=== PATIENT | female | born 1985 | race Caucasian/White ===

== ENCOUNTER 2017-02-22 17:14 | Inpatient (IN) | payer OTHER ==
[~2017-02-22] VITALS: Ht 167.6 cm; Wt 107.5 kg
[~2017-02-22 17:14] MED LIST: HYDR-971 PO; NAPR500T3 PO; OMEP20TA63 PO; PNV1TABL25 PO; TRAM-29 PO
[2017-02-22 18:51] LABS: BASO # 0.1 x10^3/uL (0.0-0.2); BASO % 1 % (0-3); EOS % 1 % (0-3); HEMATOCRIT 30.4 % (36.0-47.0); HEMOGLOBIN 10.5 g/dL (12.0-15.5); LYMPH # 1.7 x10^3/uL (1.0-4.8); LYMPH % 15 % (24-48); MEAN CORPUSCULAR HEMOGLOBIN 32 pg (25-35); MEAN CORPUSCULAR HGB CONC 35 g/dL (31-37); MEAN CORPUSCULAR VOLUME 91 fL (79-100); MONO % 9 % (0-9); NEUT % 75 % (31-73); PLATELET COUNT 351 x10^3/uL (140-400); RED BLOOD COUNT 3.33 x10^6/uL (3.50-5.40); RED CELL DISTRIBUTION WIDTH 15.4 % (11.5-14.5); WHITE BLOOD COUNT 11.9 x10^3/uL (4.0-11.0)
[2017-02-22 18:58] LABS: BILIRUBIN,URINE NEGATIVE (NEG); GLUCOSE,URINE NEGATIVE (NEG); NITRITE,URINE POSITIVE (NEG); PROTEIN,URINE >=300 mg/dL (NEG-TRACE)
[2017-02-22] MEDS ORDERED: ONDANSETRON PF 4 MG/2 ML VIAL. IV ONE (19:00)
[2017-02-22] MEDS ORDERED: MORPHINE SULFATE 4 MG/ML DISP.SYRIN. IV ONE (19:00)
[2017-02-22 19:04] LABS: CALCIUM 9.9 mg/dL (8.5-10.1); CREATININE 1.2 mg/dL (0.6-1.0); GFR 52.4; POTASSIUM 3.1 mmol/L (3.5-5.1)
[2017-02-22 19:10] LABS: BACTERIA,URINE MANY /HPF (0-FEW); SQUAMOUS EPITHELIAL CELL,UR MOD /LPF; WBC,URINE TNTC /HPF (0-4)
[2017-02-22 19:18] LABS: ALBUMIN 3.5 g/dL (3.4-5.0); ALBUMIN/GLOBULIN RATIO 0.7 (1.0-1.7); TOTAL BILIRUBIN 0.6 mg/dL (0.2-1.0); TOTAL PROTEIN 8.8 g/dL (6.4-8.2)
[2017-02-22] MEDS: IV NORMAL SALINE 1000ML BAG 1,000 ML IV SCH ×4 (19:21→23:23)
[2017-02-22] MEDS ORDERED: CONTRAST GIVEN MC PRN (20:15)
[2017-02-22] MEDS ORDERED: IOHEXOL 300 MG/ML 75 ML VIAL IV ONE (20:30)
--- NOTE | 2017-02-22 20:32 | RAD ---
PROCEDURE CT abdomen and pelvis with contrast HISTORY BILAT FLANK PAIN, 60ML OMNI [address] scan of the abdomen and pelvis was done using 60 mL Omnipaque 300 contrast. Sagittal and coronal reconstructions were reviewed. One or more of the following individualized dose reduction techniques were utilized for this examination: 1. Automated exposure control; 2. Adjustment of the mA and/or kV according to patient size; 3. Use of iterative reconstruction technique. COMPARISON None FINDINGS The lung bases are clear. There is no pleural effusion. The liver is normal in size and appearance. There is no calcified gallstone. Spleen and adrenal glands are unremarkable. The pancreas was normal. There is indistinctness about both kidneys with slight perinephric haziness. Bilateral pyelonephritis can have this pattern. A focal area of decreased enhancement is not evident. There is no renal calculus or hydronephrosis. There are phleboliths in the pelvis. Bladder appeared normal. Uterus and ovaries are normal. Appendix was normal. There is no bowel obstruction. IMPRESSION 1. Mild decreased enhancement and haziness the perinephric space about both kidneys possible bilateral pyelonephritis. 2. No renal calculus or obstruction noted. 3. Normal appendix Electronically signed by: Shreyas Suazo MD (Feb 22, 2017 20:30:42)
[2017-02-22 20:39] LABS: OBC FLU VALID
[2017-02-22] MEDS ORDERED: ACETAMINOPHEN 500 MG TABLET PO ONE (20:45)
[2017-02-22] MEDS ORDERED: POTASSIUM CHLORIDE 20 MEQ TABLET.ER. PO ONE (21:45)
--- NOTE | 2017-02-22 22:17 | PHYS DOC ---
Past Medical History Past Medical History: No Pertinent History Past Surgical History: Other Additional Past Surgical Histo: vaginal delivery 09/2016 Alcohol Use: Occasionally Drug Use: Marijuana Adult General Chief Complaint Chief Complaint: FLANK PAIN HPI HPI Patient is a 31 year old female presents with fever, bilateral flank pain. Patient reports for the past several days she has been having fever, bilateral flank pain, body aches, nausea. She also reports a productive cough and a headache. She tried some aspirin and Aleve at home with insufficient relief. No prior similar episodes. Review of Systems Review of Systems Constitutional: Fever HENT: Denies nasal congestion or sore throat Respiratory: Cough. Denies shortness of breath Cardiovascular: Denies chest pain GI: Nausea. Denies abdominal pain, vomiting, bloody stools or diarrhea : Dysuria Musculoskeletal: B/l flank pain, general body aches Integument: Denies rash or skin lesions Neurologic: Headache. Denies focal weakness or sensory changes Current Medications Current Medications Current Medications Medications (Trade) Dose Ordered Sig/Triny Start Time Stop Time Status Last Admin Dose Admin Acetaminophen (Tylenol) 1,000 mg 1X ONCE 02/22/17 20:45 02/22/17 20:46 DC 02/22/17 20:43 1,000 MG Ceftriaxone Sodium (Rocephin 1gm Ivpb For Omni) 50 ml @ 100 mls/hr 1X ONCE 02/22/17 20:00 02/22/17 20:29 DC 02/22/17 19:48 100 MLS/HR Info (Do NOT chart on this entry -- for MONITORING) 1 each PRN DAILY PRN 02/22/17 20:15 02/24/17 20:14 Iohexol (Omnipaque 300 Mg/ml) 60 ml 1X ONCE 02/22/17 20:30 02/22/17 20:31 DC 02/22/17 20:18 60 ML Morphine Sulfate 4 mg 4 mg 1X ONCE 02/22/17 19:00 02/22/17 19:01 DC 02/22/17 19:42 4 MG Ondansetron HCl (Zofran) 4 mg 1X ONCE 02/22/17 19:00 02/22/17 19:01 DC 02/22/17 19:41 4 MG Potassium Chloride (Klor-Con) 40 meq 1X ONCE 02/22/17 21:45 02/22/17 21:46 DC 02/22/17 23:22 40 MEQ Sodium Chloride (Iv Sodium Chloride 0.9% 1000ml Bag) 1,000 ml @ 2,910 mls/hr Q21M 02/22/17 19:00 02/22/17 20:00 DC 02/22/17 19:43 2,910 MLS/HR Allergies Allergies Allergies Coded Allergies Type Severity Reaction Last Updated Verified No Known Drug Allergies 07/09/14 No Physical Exam Physical Exam Constitutional: Well developed, well nourished HENT: Normocephalic, atraumatic, bilateral external ears normal Eyes: EOMI, conjunctiva normal, no discharge Neck: Normal range of motion, no stridor Cardiovascular: Tachycardic, regular rhythm, no murmur Lungs & Thorax: Bilateral breath sounds clear to auscultation Abdomen: Bowel sounds normal, soft, non-distended, LLQ TTP without guarding or rebound Skin: Hot to touch, dry, no erythema, no rash Back: B/l CVA tenderness Extremities: No obvious deformity, no edema Neurologic: Alert and oriented X 3, no gross deficits noted Current Patient Data Vital Signs Vital Signs Date Time Temp Pulse Resp B/P Pulse Ox O2 Delivery O2 Flow Rate FiO2 02/22/17 21:30 114 02/22/17 20:30 23 110/56 95 Room Air 02/22/17 20:00 101.5 101.5 Lab Values Laboratory Tests Test 02/22/17 17:25 02/22/17 18:00 02/22/17 18:15 02/22/17 19:25 POC Urine HCG, Qualitative Hcg negative (Negative) Urine Collection Type Void Urine Color Yellow Urine Clarity Cloudy Urine pH 6.0 Urine Specific [place] 1.015 Urine Protein >=300mg/dL (NEG-TRACE) Urine Glucose (UA) Negativemg/dL (NEG) Urine Ketones (Stick) Negativemg/dL (NEG) Urine Blood Large (NEG) Urine Nitrite Positive (NEG) Urine Bilirubin Negative (NEG) Urine Urobilinogen Dipstick 1.0mg/dL (0.2 mg/dL) Urine Leukocyte Esterase Large (NEG) Urine RBC 1-2/HPF (0-2) Urine WBC Tntc/HPF (0-4) Urine Squamous Epithelial Cells Mod/LPF Urine Bacteria Many/HPF (0-FEW) Urine Mucus Marked/LPF White Blood Count 11.9x10^3/uL (4.0-11.0) H Red Blood Count 3.33x10^6/uL (3.50-5.40) L Hemoglobin 10.5g/dL (12.0-15.5) L Hematocrit 30.4% (36.0-47.0) L Mean Corpuscular Volume 91fL (79-100) Mean Corpuscular Hemoglobin 32pg (25-35) Mean Corpuscular Hemoglobin Concent 35g/dL (31-37) Red Cell Distribution Width 15.4% (11.5-14.5) H Platelet Count 351x10^3/uL (140-400) Neutrophils (%) (Auto) 75% (31-73) H Lymphocytes (%) (Auto) 15% (24-48) L Monocytes (%) (Auto) 9% (0-9) Eosinophils (%) (Auto) 1% (0-3) Basophils (%) (Auto) 1% (0-3) Neutrophils # (Auto) 8.9x10^3uL (1.8-7.7) H Lymphocytes # (Auto) 1.7x10^3/uL (1.0-4.8) Monocytes # (Auto) 1.1x10^3/uL (0.0-1.1) Eosinophils # (Auto) 0.1x10^3/uL (0.0-0.7) Basophils # (Auto) 0.1x10^3/uL (0.0-0.2) Sodium Level 138mmol/L (136-145) Potassium Level 3.1mmol/L (3.5-5.1) L Chloride Level 100mmol/L (98-107) Carbon Dioxide Level 25mmol/L (21-32) Anion Gap 13 (6-14) Blood Urea Nitrogen 16mg/dL (7-20) Creatinine 1.2mg/dL (0.6-1.0) H Estimated GFR (Cockcroft-Gault) 52.4 BUN/Creatinine Ratio 13 (6-20) Glucose Level 119mg/dL (70-99) H Calcium Level 9.9mg/dL (8.5-10.1) Total Bilirubin 0.6mg/dL (0.2-1.0) Aspartate Amino Transferase (AST) 22U/L (15-37) Alanine Aminotransferase (ALT) 27U/L (14-59) Alkaline Phosphatase 94U/L (46-116) Total Protein 8.8g/dL (6.4-8.2) H Albumin 3.5g/dL (3.4-5.0) Albumin/Globulin Ratio 0.7 (1.0-1.7) L Lipase 65U/L (73-393) L Lactic Acid Level 1.1mmol/L (0.4-2.0) Test 02/22/17 19:32 Influenza Type A Antigen Negative (NEGATIVE) Influenza Type B Antigen Negative (NEGATIVE) Laboratory Tests 02/22/17 18:15 Laboratory Tests 02/22/17 18:15 EKG EKG [] Radiology/Procedures Radiology/Procedures CT A/P: IMPRESSION 1. Mild decreased enhancement and haziness the perinephric space about both kidneys possible bilateral pyelonephritis. 2. No renal calculus or obstruction noted. 3. Normal appendix CXR (my read): No acute abnormality Course & Med Decision Making Course & Med Decision Making Pertinent Labs and Imaging studies reviewed. (See chart for details) Patient is 31-year-old female who presents with fever and bilateral flank pain. Suspect pyelonephritis. Will obtain CT abdomen/pelvis, chest x-ray, UA, labs to evaluate. With tachycardia and fever, patient meet SIRS criteria. Sepsis dose fluids ordered. Pain meds and nausea meds ordered for relief of symptoms. Labs notable for leukocytosis, apparent UTI. Imaging results of above. Dose of Rocephin ordered. Discussed results with patient. Discussed with Dr. Zafar, will admit under her care for further evaluation and treatment. Dragon Disclaimer Dragon Disclaimer This electronic medical record was generated, in whole or in part, using a voice recognition dictation system. Departure Departure Impression: Primary Impression: Pyelonephritis Disposition: ADMITTED INPATIENT Admitting Physician: Eliza Zafar Condition: STABLE Referrals: NO PCP (PCP) CHIDI LIMA MD Feb 22, 2017 22:17
[2017-02-22] MEDS ORDERED: ACETAMINOPHEN 325 MG TABLET. PO PRN (22:30)
--- NOTE | 2017-02-22 23:00 | ACF ---
Admission Forms Criteria PYELONEPHRITIS, ACUTE Clinical Indications for Admission to Inpatient Care (Place 'X' for any and all applicable criteria): Admission is indicated for ANY ONE of the following 1,2,3,4,5 [ ]I. Outpatient treatment has failed or is not feasible (eg, multidrug- resistant organism).5 [ ]II. beyond 24 weeks' gestation6 [ ]III. Hemodynamic instability [ ]IV. Immunocompromised state (eg, AIDS, diabetes, sickle cell disease) [ ]V. Known renal or urologic abnormalities (eg, indwelling catheter, structural abnormalities, renal calculi, urinary stent, previous urologic surgery) [ ]. Condition that requires drainage procedure, including ANY ONE of the following: [ ]a) Urinary obstruction [ ]b) Pyelitis [ ]c) Pyonephrosis [ ]d) Renal or perinephric abscess [ ]e) Emphysematous pyelonephritis 7 [X]VII. Inpatient admission required rather than observation care (Also use Pyelonephritis, Acute: Observation Care Criteria as appropriate) because of ANY ONE of the following: [X]a) High fever or infection requiring inpatient admission as indicated by ANY ONE of [id number] [X]A. Documented bacteremia [ ]B. Temp>104.9 [id number] (oral) [ ]C. Temp>103.10F (oral) or <96.80F (rectal) that does not respond to all emergency treatment [ ]b) Acute renal failure [ ]c) Other significant finding or clinical condition judged not to be within the scope of observation care [ ]d) IV fluid to replace significant ongoing (eg, for over 24hrs) losses (> 3 L/m2 per day) [ ]e) Other condition,treatment or monitoring requiring inpatient admission The original [facility] content created by [employer] has been revised. The portions of the content which have been revised are identified through the use of italic text or in bold, and [employer] [facility] has neither reviewed nor approved the modified material. All other unmodified content is copyright [employer]. Please see references footnoted in the original [facility] [facility] edition 2016 Admission Criteria Met?: Yes PAMELLA GARCIA Feb 22, 2017 23:00
[2017-02-22 23:25] VITALS: BP 96/68
[2017-02-22] MEDS: ONDANSETRON PF 4 MG/2 ML VIAL. IV PRN (23:29)
[2017-02-22] MEDS: MORPHINE SULFATE 4 MG/ML DISP.SYRIN. IV PRN (23:30)
[2017-02-23 02:55] VITALS: BP 107/68
[2017-02-23] MEDS: MORPHINE SULFATE 4 MG/ML DISP.SYRIN. IV PRN ×2 (03:02→05:16)
[2017-02-23] MEDS: IV NORMAL SALINE 1000ML BAG 1,000 ML IV SCH ×3 (05:15→14:30)
[2017-02-23 07:00] VITALS: BP 114/67
[2017-02-23 08:09] LABS: BASO # 0.1 x10^3/uL (0.0-0.2); BASO % 1 % (0-3); EOS % 1 % (0-3); HEMATOCRIT 27.9 % (36.0-47.0); HEMOGLOBIN 9.2 g/dL (12.0-15.5); LYMPH % 16 % (24-48); MEAN CORPUSCULAR HEMOGLOBIN 31 pg (25-35); MEAN CORPUSCULAR HGB CONC 33 g/dL (31-37); MEAN CORPUSCULAR VOLUME 94 fL (79-100); MONO % 9 % (0-9); NEUT % 73 % (31-73); PLATELET COUNT 321 x10^3/uL (140-400); RED BLOOD COUNT 2.97 x10^6/uL (3.50-5.40); RED CELL DISTRIBUTION WIDTH 15.4 % (11.5-14.5); WHITE BLOOD COUNT 12.6 x10^3/uL (4.0-11.0)
[2017-02-23 08:25] LABS: CREATININE 1.1 mg/dL (0.6-1.0); GFR 57.9; POTASSIUM 3.9 mmol/L (3.5-5.1)
--- NOTE | 2017-02-23 09:03 | RAD ---
Exam: PA and lateral chest radiograph History: Fever, cough for 2 days. Comparison: 02/05/2014. Findings: Cardiomediastinal silhouette is within normal limits for size. Bilateral lung garcía are free of focal infiltrate. No pleural effusion is seen. Mild focal accentuation of the kyphosis of the thoracolumbar junction from mild chronic wedging of several vertebral bodies is without change. Impression: No acute cardiopulmonary process.
--- NOTE | 2017-02-23 09:29 | PDOC1 ---
History and Physical Current Problem List Problem List Problems Medical Problems: (1) Pyelonephritis Status: Acute Current Medications Current Medications Current Medications Medications (Trade) Dose Ordered Sig/Triny Start Time Stop Time Status Last Admin Dose Admin Acetaminophen (Tylenol) 650 mg PRN Q4HRS PRN 02/22/17 22:30 02/23/17 22:29 Ceftriaxone Sodium (Rocephin 1gm Ivpb For Omni) 50 ml @ 100 mls/hr 1X ONCE 02/22/17 20:00 02/22/17 20:29 DC 02/22/17 19:48 100 MLS/HR Info (Do NOT chart on this entry -- for MONITORING) 1 each PRN DAILY PRN 02/22/17 20:15 02/24/17 20:14 Iohexol (Omnipaque 300 Mg/ml) 60 ml 1X ONCE 02/22/17 20:30 02/22/17 20:31 DC 02/22/17 20:18 60 ML Morphine Sulfate 4 mg 4 mg PRN Q2HR PRN 02/22/17 22:30 02/23/17 22:29 02/23/17 05:16 4 MG Ondansetron HCl (Zofran) 4 mg PRN Q8HRS PRN 02/22/17 22:30 02/23/17 22:29 02/22/17 23:29 4 MG Ondansetron HCl 4 mg 4 mg 1X ONCE 02/22/17 19:00 02/22/17 19:01 DC 02/22/17 19:41 4 MG Potassium Chloride (Klor-Con) 40 meq 1X ONCE 02/22/17 21:45 02/22/17 21:46 DC 02/22/17 23:22 40 MEQ Sodium Chloride (Iv Sodium Chloride 0.9% 1000ml Bag) 1,000 ml @ 125 mls/hr Q8H 02/22/17 22:30 02/23/17 22:29 02/23/17 05:15 125 MLS/HR Allergies Allergies Allergies Coded Allergies Type Severity Reaction Last Updated Verified No Known Drug Allergies 07/09/14 No ROS Review of System CONSTITUTIONAL: fever or chills EYES: No recent changes SKIN: No rash or itching CARDIOVASCULAR: No chest pain, syncope, palpitations, or edema RESPIRATORY: No SOB or cough GASTROINTESTINAL: abdominal pain NEUROLOGICAL: No headaches or weakness ENDOCRINE: No cold or heat intolerance GENITOURINARY: No urgency or frequency of urination MUSCULOSKELETAL: No back pain or joint pain LYMPHATICS: No enlarged lymph nodes PSYCHIATRIC: No anxiety or depression Physical Exam Physical Exam GEN.: No apparent distress. Alert and oriented times 3, obese HEENT: Head is normocephalic, atraumatic NECK: Supple. no JVD LUNGS: Clear to auscultation.NORMAL air flow anterior HEART: RRR, S1, S2 present. Peripheral pulses intact ABDOMEN: Soft, nontender. Positive bowel sounds. EXTREMITIES: Without any cyanosis. no edema NEUROLOGIC: Normal speech, normal tone PSYCHIATRIC: Normal affect, normal mood. SKIN: No visible rash Vitals Vitals Vital Signs Date Time Temp Pulse Resp B/P Pulse Ox O2 Delivery O2 Flow Rate FiO2 02/23/17 07:00 99.3 114 17 114/67 96 Room Air 99.3 Labs Labs Laboratory Tests Test 02/22/17 17:25 02/22/17 18:00 02/22/17 18:15 02/22/17 19:25 Bedside Urine HCG, Qualitative Hcg negative (Negative) Urine Collection Type Void Urine Color Yellow Urine Clarity Cloudy Urine pH 6.0 Urine Specific [place] 1.015 Urine Protein >=300mg/dL (NEG-TRACE) Urine Glucose (UA) Negativemg/dL (NEG) Urine Ketones (Stick) Negativemg/dL (NEG) Urine Blood Large (NEG) Urine Nitrite Positive (NEG) Urine Bilirubin Negative (NEG) Urine Urobilinogen Dipstick 1.0mg/dL (0.2 mg/dL) Urine Leukocyte Esterase Large (NEG) Urine RBC 1-2/HPF (0-2) Urine WBC Tntc/HPF (0-4) Urine Squamous Epithelial Cells Mod/LPF Urine Bacteria Many/HPF (0-FEW) Urine Mucus Marked/LPF White Blood Count 11.9x10^3/uL (4.0-11.0) Red Blood Count 3.33x10^6/uL (3.50-5.40) Hemoglobin 10.5g/dL (12.0-15.5) Hematocrit 30.4% (36.0-47.0) Mean Corpuscular Volume 91fL (79-100) Mean Corpuscular Hemoglobin 32pg (25-35) Mean Corpuscular Hemoglobin Concent 35g/dL (31-37) Red Cell Distribution Width 15.4% (11.5-14.5) Platelet Count 351x10^3/uL (140-400) Neutrophils (%) (Auto) 75% (31-73) Lymphocytes (%) (Auto) 15% (24-48) Monocytes (%) (Auto) 9% (0-9) Eosinophils (%) (Auto) 1% (0-3) Basophils (%) (Auto) 1% (0-3) Neutrophils # (Auto) 8.9x10^3uL (1.8-7.7) Lymphocytes # (Auto) 1.7x10^3/uL (1.0-4.8) Monocytes # (Auto) 1.1x10^3/uL (0.0-1.1) Eosinophils # (Auto) 0.1x10^3/uL (0.0-0.7) Basophils # (Auto) 0.1x10^3/uL (0.0-0.2) Sodium Level 138mmol/L (136-145) Potassium Level 3.1mmol/L (3.5-5.1) Chloride Level 100mmol/L (98-107) Carbon Dioxide Level 25mmol/L (21-32) Anion Gap 13 (6-14) Blood Urea Nitrogen 16mg/dL (7-20) Creatinine 1.2mg/dL (0.6-1.0) Estimated GFR (Cockcroft-Gault) 52.4 BUN/Creatinine Ratio 13 (6-20) Glucose Level 119mg/dL (70-99) Calcium Level 9.9mg/dL (8.5-10.1) Total Bilirubin 0.6mg/dL (0.2-1.0) Aspartate Amino Transf (AST/SGOT) 22U/L (15-37) Alanine Aminotransferase (ALT/SGPT) 27U/L (14-59) Alkaline Phosphatase 94U/L (46-116) Total Protein 8.8g/dL (6.4-8.2) Albumin 3.5g/dL (3.4-5.0) Albumin/Globulin Ratio 0.7 (1.0-1.7) Lipase 65U/L (73-393) Lactic Acid Level 1.1mmol/L (0.4-2.0) Test 02/22/17 19:32 02/23/17 07:20 Influenza Type A Antigen Negative (NEGATIVE) Influenza Type B Antigen Negative (NEGATIVE) White Blood Count 12.6x10^3/uL (4.0-11.0) Red Blood Count 2.97x10^6/uL (3.50-5.40) Hemoglobin 9.2g/dL (12.0-15.5) Hematocrit 27.9% (36.0-47.0) Mean Corpuscular Volume 94fL (79-100) Mean Corpuscular Hemoglobin 31pg (25-35) Mean Corpuscular Hemoglobin Concent 33g/dL (31-37) Red Cell Distribution Width 15.4% (11.5-14.5) Platelet Count 321x10^3/uL (140-400) Neutrophils (%) (Auto) 73% (31-73) Lymphocytes (%) (Auto) 16% (24-48) Monocytes (%) (Auto) 9% (0-9) Eosinophils (%) (Auto) 1% (0-3) Basophils (%) (Auto) 1% (0-3) Neutrophils # (Auto) 9.2x10^3uL (1.8-7.7) Lymphocytes # (Auto) 2.0x10^3/uL (1.0-4.8) Monocytes # (Auto) 1.2x10^3/uL (0.0-1.1) Eosinophils # (Auto) 0.1x10^3/uL (0.0-0.7) Basophils # (Auto) 0.1x10^3/uL (0.0-0.2) Sodium Level 138mmol/L (136-145) Potassium Level 3.9mmol/L (3.5-5.1) Chloride Level 103mmol/L (98-107) Carbon Dioxide Level 24mmol/L (21-32) Anion Gap 11 (6-14) Blood Urea Nitrogen 11mg/dL (7-20) Creatinine 1.1mg/dL (0.6-1.0) Estimated GFR (Cockcroft-Gault) 57.9 Glucose Level 101mg/dL (70-99) Calcium Level 8.0mg/dL (8.5-10.1) Laboratory Tests Test 02/22/17 17:25 02/22/17 18:00 02/22/17 18:15 02/22/17 19:25 Bedside Urine HCG, Qualitative Hcg negative (Negative) Urine Collection Type Void Urine Color Yellow Urine Clarity Cloudy Urine pH 6.0 Urine Specific [place] 1.015 Urine Protein >=300mg/dL (NEG-TRACE) Urine Glucose (UA) Negativemg/dL (NEG) Urine Ketones (Stick) Negativemg/dL (NEG) Urine Blood Large (NEG) Urine Nitrite Positive (NEG) Urine Bilirubin Negative (NEG) Urine Urobilinogen Dipstick 1.0mg/dL (0.2 mg/dL) Urine Leukocyte Esterase Large (NEG) Urine RBC 1-2/HPF (0-2) Urine WBC Tntc/HPF (0-4) Urine Squamous Epithelial Cells Mod/LPF Urine Bacteria Many/HPF (0-FEW) Urine Mucus Marked/LPF White Blood Count 11.9x10^3/uL (4.0-11.0) Red Blood Count 3.33x10^6/uL (3.50-5.40) Hemoglobin 10.5g/dL (12.0-15.5) Hematocrit 30.4% (36.0-47.0) Mean Corpuscular Volume 91fL (79-100) Mean Corpuscular Hemoglobin 32pg (25-35) Mean Corpuscular Hemoglobin Concent 35g/dL (31-37) Red Cell Distribution Width 15.4% (11.5-14.5) Platelet Count 351x10^3/uL (140-400) Neutrophils (%) (Auto) 75% (31-73) Lymphocytes (%) (Auto) 15% (24-48) Monocytes (%) (Auto) 9% (0-9) Eosinophils (%) (Auto) 1% (0-3) Basophils (%) (Auto) 1% (0-3) Neutrophils # (Auto) 8.9x10^3uL (1.8-7.7) Lymphocytes # (Auto) 1.7x10^3/uL (1.0-4.8) Monocytes # (Auto) 1.1x10^3/uL (0.0-1.1) Eosinophils # (Auto) 0.1x10^3/uL (0.0-0.7) Basophils # (Auto) 0.1x10^3/uL (0.0-0.2) Sodium Level 138mmol/L (136-145) Potassium Level 3.1mmol/L (3.5-5.1) Chloride Level 100mmol/L (98-107) Carbon Dioxide Level 25mmol/L (21-32) Anion Gap 13 (6-14) Blood Urea Nitrogen 16mg/dL (7-20) Creatinine 1.2mg/dL (0.6-1.0) Estimated GFR (Cockcroft-Gault) 52.4 BUN/Creatinine Ratio 13 (6-20) Glucose Level 119mg/dL (70-99) Calcium Level 9.9mg/dL (8.5-10.1) Total Bilirubin 0.6mg/dL (0.2-1.0) Aspartate Amino Transf (AST/SGOT) 22U/L (15-37) Alanine Aminotransferase (ALT/SGPT) 27U/L (14-59) Alkaline Phosphatase 94U/L (46-116) Total Protein 8.8g/dL (6.4-8.2) Albumin 3.5g/dL (3.4-5.0) Albumin/Globulin Ratio 0.7 (1.0-1.7) Lipase 65U/L (73-393) Lactic Acid Level 1.1mmol/L (0.4-2.0) Test 02/22/17 19:32 02/23/17 07:20 Influenza Type A Antigen Negative (NEGATIVE) Influenza Type B Antigen Negative (NEGATIVE) White Blood Count 12.6x10^3/uL (4.0-11.0) Red Blood Count 2.97x10^6/uL (3.50-5.40) Hemoglobin 9.2g/dL (12.0-15.5) Hematocrit 27.9% (36.0-47.0) Mean Corpuscular Volume 94fL (79-100) Mean Corpuscular Hemoglobin 31pg (25-35) Mean Corpuscular Hemoglobin Concent 33g/dL (31-37) Red Cell Distribution Width 15.4% (11.5-14.5) Platelet Count 321x10^3/uL (140-400) Neutrophils (%) (Auto) 73% (31-73) Lymphocytes (%) (Auto) 16% (24-48) Monocytes (%) (Auto) 9% (0-9) Eosinophils (%) (Auto) 1% (0-3) Basophils (%) (Auto) 1% (0-3) Neutrophils # (Auto) 9.2x10^3uL (1.8-7.7) Lymphocytes # (Auto) 2.0x10^3/uL (1.0-4.8) Monocytes # (Auto) 1.2x10^3/uL (0.0-1.1) Eosinophils # (Auto) 0.1x10^3/uL (0.0-0.7) Basophils # (Auto) 0.1x10^3/uL (0.0-0.2) Sodium Level 138mmol/L (136-145) Potassium Level 3.9mmol/L (3.5-5.1) Chloride Level 103mmol/L (98-107) Carbon Dioxide Level 24mmol/L (21-32) Anion Gap 11 (6-14) Blood Urea Nitrogen 11mg/dL (7-20) Creatinine 1.1mg/dL (0.6-1.0) Estimated GFR (Cockcroft-Gault) 57.9 Glucose Level 101mg/dL (70-99) Calcium Level 8.0mg/dL (8.5-10.1) VTE Prophylaxis Ordered VTE Prophylaxis Devices: Yes VTE Pharmacological Prophylaxi: Yes WANG OSWALD MD Feb 23, 2017 09:29
[2017-02-23] MEDS ORDERED: ONDANSETRON PF 4 MG/2 ML VIAL. IV PRN (09:30)
[2017-02-23] MEDS ORDERED: hydrALAZINE 20 MG/ML VIAL. IVP PRN (09:30)
[2017-02-23] MEDS: ACETAMINOPHEN 325 MG TABLET. PO PRN ×2 (10:00→20:39)
[2017-02-23] MEDS: ENOXAPARIN 40 MG/0.4 ML SYRINGE. SQ SCH (10:00)
[2017-02-23] MEDS ORDERED: PANTOPRAZOLE IV PUSH 40 MG VIAL. IVP SCH (10:00)
[2017-02-23] MEDS ORDERED: NICOTINE 21MG PATCH. TD PRN (10:15)
[2017-02-23 10:56] VITALS: BP 125/65
--- NOTE | 2017-02-23 11:44 | HP ---
ADMIT DATE: 02/23/2017 CHIEF COMPLAINT: Flank pain. HISTORY OF PRESENT ILLNESS: A 31-year-old female patient with no prior significant history, presented to the ER with complaints of fever, chills, abdominal pain, bilateral flank pain for nearly 5-7 days. She reported to have drenching sweats, fever at home and also noted to have body aches and weakness and some headaches. Yesterday she presented to the ER at the time she had some fever and abdominal pain was 8/10, vague, located to bilateral flank region. Denies any sick contacts or travel history. She did have some cough with headaches. Currently, headache is getting better. She has never been admitted to the hospital and did not have any antibiotic course prior to admission. She is a current smoker and also takes marijuana. 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 PAST MEDICAL HISTORY: None. PAST SURGICAL HISTORY: none PERSONAL HISTORY: Smoking less than 1 pack a day and no alcohol, occasionally takes THC. FAMILY HISTORY: Mother had pacemaker and diabetes. REVIEW OF SYSTEMS: Please see my electronic H and P. PHYSICAL EXAMINATION: Please see my electronic H and P. ALLERGIES: NKDA. LABORATORY FINDINGS: CBC; WBC 11.9, hemoglobin is 10.5, MCV is 91, platelets 351. Chemistry: Sodium is 138, potassium 3.1, chloride is 110, anion gap 13, BUN is 16, creatinine 1.2 and glucose 119. Lipase is 65. Serology; Influenza A and B negative. Urine pH is 6.0. Protein is more than 300. Ketones negative, nitrites positive, leukocyte esterase large, bacteria many. IMAGING STUDIES: 1. CT of the abdomen and pelvis showed suspected bilateral pyelonephritis. No renal calculus or obstruction noted. 2. Chest x-ray, no acute cardiopulmonary process seen. ASSESSMENT AND PLAN: 1. Acute pyelonephritis, present on admission. 2. Abdominal pain due to above. 3. Fever. 4. Nausea and abdominal pain due to above. 5. Hypokalemia. 6. Nicotine use. 4. THC use. 5. Obesity. PLAN: 1. She was started on IV Rocephin and will continue IV Rocephin daily. 2. Urine culture and sensitivities are pending. 3. Continue IV hydration at 125 mL per hour and if symptoms do not improve, I will repeat an ultrasound of the renal. 4. Encourage the patient to take oral fluids. If the patient is symptomatic, we will hold off. 5. Protonix has been started for symptoms of gastritis. 6. Nicotine patch p.r.n. 7. DVT prophylaxis with Lovenox. 8. Plan explained to the patient. Pain control with IV morphine and hydrocodone. WANG OSWALD MD DR: CURRY/elton JOB#: [id number] / [id number] VERONICA
[2017-02-23] MEDS: HYDROCODONE/APAP 5/325MG TABLET. PO PRN ×2 (11:50→19:42)
[2017-02-23] MEDS: ONDANSETRON PF 4 MG/2 ML VIAL. IV PRN (11:51)
[2017-02-23] MEDS: ALBUTEROL SULFATE 2.5 MG/3 ML NEBU. NEB PRN (12:28)
[2017-02-23 14:48] VITALS: BP 97/64
[2017-02-23 19:00] VITALS: BP 109/56
[2017-02-23 23:00] VITALS: BP 96/55
[2017-02-24] VITALS (7 sets, daily range): BP systolic 95–112; BP diastolic 54–70
[2017-02-24] MEDS: PANTOPRAZOLE 40 MG TABLET.DR. PO SCH (08:10)
[2017-02-24] MEDS: ACETAMINOPHEN 325 MG TABLET. PO PRN (08:28)
[2017-02-24 09:37] LABS: BASO # 0.1 x10^3/uL (0.0-0.2); BASO % 1 % (0-3); EOS % 2 % (0-3); HEMATOCRIT 23.8 % (36.0-47.0); HEMOGLOBIN 8.2 g/dL (12.0-15.5); LYMPH % 20 % (24-48); MEAN CORPUSCULAR HEMOGLOBIN 32 pg (25-35); MEAN CORPUSCULAR HGB CONC 35 g/dL (31-37); MEAN CORPUSCULAR VOLUME 91 fL (79-100); MONO % 9 % (0-9); NEUT % 69 % (31-73); PLATELET COUNT 343 x10^3/uL (140-400); RED BLOOD COUNT 2.62 x10^6/uL (3.50-5.40); RED CELL DISTRIBUTION WIDTH 15.4 % (11.5-14.5); WHITE BLOOD COUNT 10.1 x10^3/uL (4.0-11.0)
[2017-02-24 09:44] LABS: CALCIUM 8.1 mg/dL (8.5-10.1); GFR 64.7; POTASSIUM 3.5 mmol/L (3.5-5.1)
[2017-02-24] MEDS: IV NORMAL SALINE 1000ML BAG 1,000 ML IV SCH ×2 (10:30→21:26)
[2017-02-24] MEDS: ENOXAPARIN 40 MG/0.4 ML SYRINGE. SQ SCH (11:33)
[2017-02-24] MEDS: ALBUTEROL SULFATE 2.5 MG/3 ML NEBU. NEB PRN (11:38)
--- NOTE | 2017-02-24 12:45 | PDOC ---
PROGRESS NOTES Chief Complaint Chief Complaint cc: fevers A/P 1. Acute pyelonephritis, present on admission.: on IV Rocephin continue to have fevers, clinically getting better, continue abx. iv Hydration with normal saline. monitor UCX and blood cx. wbc better. monitor hemoglobin. 2. Abdominal pain due to above.: Pain control, 3. Fever. 4. Nausea and abdominal pain due to above. 5. Hypokalemia.Resolved. 6. Nicotine use. 4. THC use. 5. Obesity. Vitals Vitals Vital Signs Date Time Temp Pulse Resp B/P Pulse Ox O2 Delivery O2 Flow Rate FiO2 02/24/17 11:39 94 Room Air 02/24/17 11:34 97.7 16 112/54 97.7 02/24/17 08:14 94 02/24/17 07:00 3.0 Physical Exam General: Alert, Oriented X3 Heart: Normal S1, Normal S2 Lungs: Clear, Wheezing Abdomen: Normal bowel sounds, Soft Labs LABS Laboratory Tests Test 02/24/17 08:50 White Blood Count 10.1x10^3/uL (4.0-11.0) Red Blood Count 2.62x10^6/uL (3.50-5.40) Hemoglobin 8.2g/dL (12.0-15.5) Hematocrit 23.8% (36.0-47.0) Mean Corpuscular Volume 91fL (79-100) Mean Corpuscular Hemoglobin 32pg (25-35) Mean Corpuscular Hemoglobin Concent 35g/dL (31-37) Red Cell Distribution Width 15.4% (11.5-14.5) Platelet Count 343x10^3/uL (140-400) Neutrophils (%) (Auto) 69% (31-73) Lymphocytes (%) (Auto) 20% (24-48) Monocytes (%) (Auto) 9% (0-9) Eosinophils (%) (Auto) 2% (0-3) Basophils (%) (Auto) 1% (0-3) Neutrophils # (Auto) 6.9x10^3uL (1.8-7.7) Lymphocytes # (Auto) 2.0x10^3/uL (1.0-4.8) Monocytes # (Auto) 0.9x10^3/uL (0.0-1.1) Eosinophils # (Auto) 0.2x10^3/uL (0.0-0.7) Basophils # (Auto) 0.1x10^3/uL (0.0-0.2) Sodium Level 140mmol/L (136-145) Potassium Level 3.5mmol/L (3.5-5.1) Chloride Level 105mmol/L (98-107) Carbon Dioxide Level 27mmol/L (21-32) Anion Gap 8 (6-14) Blood Urea Nitrogen 8mg/dL (7-20) Creatinine 1.0mg/dL (0.6-1.0) Estimated GFR (Cockcroft-Gault) 64.7 Glucose Level 102mg/dL (70-99) Calcium Level 8.1mg/dL (8.5-10.1) Assessment and Plan Assessmemt and Plan Problems Medical Problems: (1) Pyelonephritis Status: Acute Problems: Comment Review of Relevant I have reviewed the following items rashaun (where applicable) has been applied. Labs Laboratory Tests Test 02/22/17 17:25 02/22/17 18:00 02/22/17 18:15 02/22/17 19:25 Bedside Urine HCG, Qualitative Hcg negative (Negative) Urine Collection Type Void Urine Color Yellow Urine Clarity Cloudy Urine pH 6.0 Urine Specific [place] 1.015 Urine Protein >=300mg/dL (NEG-TRACE) Urine Glucose (UA) Negativemg/dL (NEG) Urine Ketones (Stick) Negativemg/dL (NEG) Urine Blood Large (NEG) Urine Nitrite Positive (NEG) Urine Bilirubin Negative (NEG) Urine Urobilinogen Dipstick 1.0mg/dL (0.2 mg/dL) Urine Leukocyte Esterase Large (NEG) Urine RBC 1-2/HPF (0-2) Urine WBC Tntc/HPF (0-4) Urine Squamous Epithelial Cells Mod/LPF Urine Bacteria Many/HPF (0-FEW) Urine Mucus Marked/LPF White Blood Count 11.9x10^3/uL (4.0-11.0) Red Blood Count 3.33x10^6/uL (3.50-5.40) Hemoglobin 10.5g/dL (12.0-15.5) Hematocrit 30.4% (36.0-47.0) Mean Corpuscular Volume 91fL (79-100) Mean Corpuscular Hemoglobin 32pg (25-35) Mean Corpuscular Hemoglobin Concent 35g/dL (31-37) Red Cell Distribution Width 15.4% (11.5-14.5) Platelet Count 351x10^3/uL (140-400) Neutrophils (%) (Auto) 75% (31-73) Lymphocytes (%) (Auto) 15% (24-48) Monocytes (%) (Auto) 9% (0-9) Eosinophils (%) (Auto) 1% (0-3) Basophils (%) (Auto) 1% (0-3) Neutrophils # (Auto) 8.9x10^3uL (1.8-7.7) Lymphocytes # (Auto) 1.7x10^3/uL (1.0-4.8) Monocytes # (Auto) 1.1x10^3/uL (0.0-1.1) Eosinophils # (Auto) 0.1x10^3/uL (0.0-0.7) Basophils # (Auto) 0.1x10^3/uL (0.0-0.2) Sodium Level 138mmol/L (136-145) Potassium Level 3.1mmol/L (3.5-5.1) Chloride Level 100mmol/L (98-107) Carbon Dioxide Level 25mmol/L (21-32) Anion Gap 13 (6-14) Blood Urea Nitrogen 16mg/dL (7-20) Creatinine 1.2mg/dL (0.6-1.0) Estimated GFR (Cockcroft-Gault) 52.4 BUN/Creatinine Ratio 13 (6-20) Glucose Level 119mg/dL (70-99) Calcium Level 9.9mg/dL (8.5-10.1) Total Bilirubin 0.6mg/dL (0.2-1.0) Aspartate Amino Transf (AST/SGOT) 22U/L (15-37) Alanine Aminotransferase (ALT/SGPT) 27U/L (14-59) Alkaline Phosphatase 94U/L (46-116) Total Protein 8.8g/dL (6.4-8.2) Albumin 3.5g/dL (3.4-5.0) Albumin/Globulin Ratio 0.7 (1.0-1.7) Lipase 65U/L (73-393) Lactic Acid Level 1.1mmol/L (0.4-2.0) Test 02/22/17 19:32 02/23/17 07:20 02/24/17 08:50 Influenza Type A Antigen Negative (NEGATIVE) Influenza Type B Antigen Negative (NEGATIVE) White Blood Count 12.6x10^3/uL (4.0-11.0) 10.1x10^3/uL (4.0-11.0) Red Blood Count 2.97x10^6/uL (3.50-5.40) 2.62x10^6/uL (3.50-5.40) Hemoglobin 9.2g/dL (12.0-15.5) 8.2g/dL (12.0-15.5) Hematocrit 27.9% (36.0-47.0) 23.8% (36.0-47.0) Mean Corpuscular Volume 94fL (79-100) 91fL (79-100) Mean Corpuscular Hemoglobin 31pg (25-35) 32pg (25-35) Mean Corpuscular Hemoglobin Concent 33g/dL (31-37) 35g/dL (31-37) Red Cell Distribution Width 15.4% (11.5-14.5) 15.4% (11.5-14.5) Platelet Count 321x10^3/uL (140-400) 343x10^3/uL (140-400) Neutrophils (%) (Auto) 73% (31-73) 69% (31-73) Lymphocytes (%) (Auto) 16% (24-48) 20% (24-48) Monocytes (%) (Auto) 9% (0-9) 9% (0-9) Eosinophils (%) (Auto) 1% (0-3) 2% (0-3) Basophils (%) (Auto) 1% (0-3) 1% (0-3) Neutrophils # (Auto) 9.2x10^3uL (1.8-7.7) 6.9x10^3uL (1.8-7.7) Lymphocytes # (Auto) 2.0x10^3/uL (1.0-4.8) 2.0x10^3/uL (1.0-4.8) Monocytes # (Auto) 1.2x10^3/uL (0.0-1.1) 0.9x10^3/uL (0.0-1.1) Eosinophils # (Auto) 0.1x10^3/uL (0.0-0.7) 0.2x10^3/uL (0.0-0.7) Basophils # (Auto) 0.1x10^3/uL (0.0-0.2) 0.1x10^3/uL (0.0-0.2) Sodium Level 138mmol/L (136-145) 140mmol/L (136-145) Potassium Level 3.9mmol/L (3.5-5.1) 3.5mmol/L (3.5-5.1) Chloride Level 103mmol/L (98-107) 105mmol/L (98-107) Carbon Dioxide Level 24mmol/L (21-32) 27mmol/L (21-32) Anion Gap 11 (6-14) 8 (6-14) Blood Urea Nitrogen 11mg/dL (7-20) 8mg/dL (7-20) Creatinine 1.1mg/dL (0.6-1.0) 1.0mg/dL (0.6-1.0) Estimated GFR (Cockcroft-Gault) 57.9 64.7 Glucose Level 101mg/dL (70-99) 102mg/dL (70-99) Calcium Level 8.0mg/dL (8.5-10.1) 8.1mg/dL (8.5-10.1) Laboratory Tests Test 02/24/17 08:50 White Blood Count 10.1x10^3/uL (4.0-11.0) Red Blood Count 2.62x10^6/uL (3.50-5.40) Hemoglobin 8.2g/dL (12.0-15.5) Hematocrit 23.8% (36.0-47.0) Mean Corpuscular Volume 91fL (79-100) Mean Corpuscular Hemoglobin 32pg (25-35) Mean Corpuscular Hemoglobin Concent 35g/dL (31-37) Red Cell Distribution Width 15.4% (11.5-14.5) Platelet Count 343x10^3/uL (140-400) Neutrophils (%) (Auto) 69% (31-73) Lymphocytes (%) (Auto) 20% (24-48) Monocytes (%) (Auto) 9% (0-9) Eosinophils (%) (Auto) 2% (0-3) Basophils (%) (Auto) 1% (0-3) Neutrophils # (Auto) 6.9x10^3uL (1.8-7.7) Lymphocytes # (Auto) 2.0x10^3/uL (1.0-4.8) Monocytes # (Auto) 0.9x10^3/uL (0.0-1.1) Eosinophils # (Auto) 0.2x10^3/uL (0.0-0.7) Basophils # (Auto) 0.1x10^3/uL (0.0-0.2) Sodium Level 140mmol/L (136-145) Potassium Level 3.5mmol/L (3.5-5.1) Chloride Level 105mmol/L (98-107) Carbon Dioxide Level 27mmol/L (21-32) Anion Gap 8 (6-14) Blood Urea Nitrogen 8mg/dL (7-20) Creatinine 1.0mg/dL (0.6-1.0) Estimated GFR (Cockcroft-Gault) 64.7 Glucose Level 102mg/dL (70-99) Calcium Level 8.1mg/dL (8.5-10.1) Microbiology 02/22/17 Blood Culture - Preliminary, Resulted NO GROWTH AFTER 1 DAY 02/22/17 Urine Culture - Preliminary, Resulted 02/22/17 Urine Culture Result 1 (LISA) - Preliminary, Resulted Medications Current Medications Sodium Chloride (Iv Sodium Chloride 0.9% 1000ml Bag) 1,000 ml @ 2,910 mls/hr Q21M IV Last administered on 02/22/17 19:43; Start 02/22/17 at 19:00; Stop at 20:00; Status DC Ondansetron HCl (Zofran) 4 mg 1X ONCE IV Last administered on 02/22/17 19:41 ; Start 02/22/17 at 19:00; Stop 02/22/17 at 19:01; Status DC Morphine Sulfate 4 mg 4 mg 1X ONCE IV Last administered on 02/22/17 19:42; Start 02/22/17 at 19:00; Stop 02/22/17 at 19:01; Status DC Ceftriaxone Sodium (Rocephin 1gm Ivpb For Omni) 50 ml @ 100 mls/hr 1X ONCE IV Last administered on 02/22/17 19:48; Start 02/22/17 at 20:00; Stop 02/22/17 at 20:29; Status DC Iohexol (Omnipaque 300 Mg/ml) 60 ml 1X ONCE IV Last administered on 02/22/17 20:18; Start 02/22/17 at 20:30; Stop 02/22/17 at 20:31; Status DC Info (Do NOT chart on this entry -- for MONITORING) 1 each PRN DAILY PRN MC SEE COMMENTS; Start 02/22/17 at 20:15; Stop 02/24/17 at 20:14 Acetaminophen (Tylenol) 1,000 mg 1X ONCE PO Last administered on 02/22/17 20: 43; Start 02/22/17 at 20:45; Stop 02/22/17 at 20:46; Status DC Potassium Chloride (Klor-Con) 40 meq 1X ONCE PO Last administered on 23:22; Start 02/22/17 at 21:45; Stop 02/22/17 at 21:46; Status DC Ondansetron HCl (Zofran) 4 mg PRN Q8HRS PRN IV NAUSEA/VOMITING Last administered on 02/23/17 11:51; Start 02/22/17 at 22:30; Stop 02/23/17 at 18:42 ; Status DC Morphine Sulfate 4 mg 4 mg PRN Q2HR PRN IV PAIN Last administered on 02/23/17 05:16; Start 02/22/17 at 22:30; Stop 02/23/17 at 22:29; Status DC Sodium Chloride (Iv Sodium Chloride 0.9% 1000ml Bag) 1,000 ml @ 125 mls/hr Q8H IV Last administered on 02/23/17 05:15; Start 02/22/17 at 22:30; Stop at 15:36; Status DC Acetaminophen 650 mg 650 mg PRN Q4HRS PRN PO FEVER; Start 02/22/17 at 22:30; Stop 02/23/17 at 09:47; Status DC Ceftriaxone Sodium 1 gm/ Sodium Chloride 50 ml @ 100 mls/hr Q24H IV Last administered on 02/24/17 10:30; Start 02/23/17 at 10:00 Sodium Chloride (Iv Sodium Chloride 0.9% 1000ml Bag) 1,000 ml @ 100 mls/hr Q10H IV Last administered on 02/24/17 10:30; Start 02/23/17 at 09:30 Acetaminophen (Tylenol) 325 mg PRN Q6HRS PRN PO MILD PAIN / TEMP Last administered on 02/24/17 08:28; Start 02/23/17 at 09:30 Acetaminophen/ Hydrocodone Bitart (Lortab 5/325) 1 tab PRN Q6HRS PRN PO MODERATE TO SEVERE PAIN Last administered on 02/23/17 19:42; Start 02/23/17 at 09:30 Hydralazine HCl (Apresoline) 10 mg PRN Q4HRS PRN IVP ELEVATED BP, SEE COMMENTS ; Start 02/23/17 at 09:30 Ondansetron HCl (Zofran) 4 mg PRN Q8HRS PRN IV NAUSEA/VOMITING; Start 02/23/17 at 09:30 Albuterol Sulfate (Ventolin Neb Soln) 2.5 mg PRN Q4HRS PRN NEB SHORTNESS OF BREATH Last administered on 02/24/17 11:38; Start 02/23/17 at 09:30 Pantoprazole Sodium (Protonix Vial) 40 mg DAILYAC IVP Last administered on 02/23 10:00; Start 02/23/17 at 10:00; Stop 02/23/17 at 18:44; Status DC Enoxaparin Sodium (Lovenox 40mg Syringe) 40 mg Q24H SQ Last administered on 11:33; Start 02/23/17 at 10:00 Nicotine (Nicoderm Cq 21mg) 1 patch PRN DAILY PRN TD SMOKING CESSATION Last administered on 02/23/17 10:40; Start 02/23/17 at 10:15 Pantoprazole Sodium (Protonix) 40 mg DAILYAC PO Last administered on 02/24/17 08:10; Start 02/24/17 at 07:30 Active Scripts Active Naproxen 500 Mg Tablet 1 Tab PO BID [place] 5-325 Tablet (Acetaminophen/Hydrocodone Bitart) 1 Each Tablet 1 Tab PO PRN Q6HRS PRN Vitals/I & O Vital Sign - Last 24 Hours 02/23/17 02/23/17 02/23/17 02/23/17 14:48 19:00 19:42 20:00 Temp 98.6 100.4 98.6 100.4 Pulse 98 115 Resp 18 B/P 97/64 109/56 Pulse Ox 96 99 96 O2 Delivery Room Air Room Air Room Air 02/23/17 02/23/17 02/24/17 02/24/17 20:42 23:00 03:00 07:00 Temp 98.4 100.0 99.1 98.4 100.0 99.1 Pulse 95 93 94 Resp 18 16 B/P 96/55 95/60 102/55 Pulse Ox 96 95 96 93 O2 Delivery Room Air Nasal Cannula O2 Flow Rate 3.0 02/24/17 02/24/17 02/24/17 02/24/17 07:50 08:14 11:34 11:39 Temp 99.1 97.7 99.1 97.7 Pulse 94 Resp 16 B/P 102/55 112/54 Pulse Ox 94 O2 Delivery Room Air Room Air Room Air Room Air Intake and Output 02/23/17 02/23/17 02/24/17 15:00 23:00 07:00 Intake Total 1000 ml 360 ml 120 ml Balance 1000 ml 360 ml 120 ml WANG OSWALD MD Feb 24, 2017 12:45
[2017-02-24] MEDS: HYDROCODONE/APAP 5/325MG TABLET. PO PRN (20:36)
[2017-02-25] MEDS: IV NORMAL SALINE 1000ML BAG 1,000 ML IV SCH ×2 (01:30→11:30)
[2017-02-25 03:00] VITALS: BP 105/69
[2017-02-25 04:36] LABS: BASO # 0.1 x10^3/uL (0.0-0.2); BASO % 1 % (0-3); EOS % 4 % (0-3); HEMATOCRIT 23.5 % (36.0-47.0); HEMOGLOBIN 7.9 g/dL (12.0-15.5); LYMPH # 2.5 x10^3/uL (1.0-4.8); LYMPH % 31 % (24-48); MEAN CORPUSCULAR HEMOGLOBIN 31 pg (25-35); MEAN CORPUSCULAR HGB CONC 34 g/dL (31-37); MEAN CORPUSCULAR VOLUME 93 fL (79-100); MONO % 7 % (0-9); NEUT % 58 % (31-73); PLATELET COUNT 363 x10^3/uL (140-400); RED BLOOD COUNT 2.52 x10^6/uL (3.50-5.40); RED CELL DISTRIBUTION WIDTH 15.3 % (11.5-14.5); WHITE BLOOD COUNT 8.2 x10^3/uL (4.0-11.0)
[2017-02-25 05:28] LABS: CALCIUM 8.4 mg/dL (8.5-10.1); CREATININE 0.9 mg/dL (0.6-1.0); POTASSIUM 3.8 mmol/L (3.5-5.1)
[2017-02-25 07:00] VITALS: BP 120/60
[2017-02-25] MEDS: PANTOPRAZOLE 40 MG TABLET.DR. PO SCH (08:40)
[2017-02-25] MEDS: ENOXAPARIN 40 MG/0.4 ML SYRINGE. SQ SCH (08:40)
[2017-02-25] MEDS: HYDROCODONE/APAP 5/325MG TABLET. PO PRN (08:53)
[2017-02-25 11:00] VITALS: BP 111/79
[2017-02-25] MEDS ORDERED: CIPROFLOXACIN HCL 250 MG TABLET. PO SCH ×2 (11:30→21:00)
--- NOTE | 2017-02-25 11:30 | PDOC ---
PROGRESS NOTES Chief Complaint Chief Complaint cc: fevers A/P 1. Acute pyelonephritis, present on admission. E coli: on IV Rocephin UCX, Senstivie to cipro, anticipated DC today as pt is asymptomatic, clinically better. 2. Abdominal pain due to above.: Pain control, 3. Fever. 4. Nausea and abdominal pain due to above. 5. Hypokalemia.Resolved. 6. Nicotine use. 4. THC use. 5. Obesity. Vitals Vitals Vital Signs Date Time Temp Pulse Resp B/P Pulse Ox O2 Delivery O2 Flow Rate FiO2 02/25/17 09:55 97 Room Air 3.0 02/25/17 07:00 97.0 88 22 120/60 97.0 Physical Exam General: Alert, Oriented X3 Heart: Normal S1, Normal S2 Lungs: Clear, Wheezing Abdomen: Normal bowel sounds, Soft Labs LABS Laboratory Tests Test 02/25/17 03:30 White Blood Count 8.2x10^3/uL (4.0-11.0) Red Blood Count 2.52x10^6/uL (3.50-5.40) Hemoglobin 7.9g/dL (12.0-15.5) Hematocrit 23.5% (36.0-47.0) Mean Corpuscular Volume 93fL (79-100) Mean Corpuscular Hemoglobin 31pg (25-35) Mean Corpuscular Hemoglobin Concent 34g/dL (31-37) Red Cell Distribution Width 15.3% (11.5-14.5) Platelet Count 363x10^3/uL (140-400) Neutrophils (%) (Auto) 58% (31-73) Lymphocytes (%) (Auto) 31% (24-48) Monocytes (%) (Auto) 7% (0-9) Eosinophils (%) (Auto) 4% (0-3) Basophils (%) (Auto) 1% (0-3) Neutrophils # (Auto) 4.8x10^3uL (1.8-7.7) Lymphocytes # (Auto) 2.5x10^3/uL (1.0-4.8) Monocytes # (Auto) 0.6x10^3/uL (0.0-1.1) Eosinophils # (Auto) 0.3x10^3/uL (0.0-0.7) Basophils # (Auto) 0.1x10^3/uL (0.0-0.2) Sodium Level 142mmol/L (136-145) Potassium Level 3.8mmol/L (3.5-5.1) Chloride Level 107mmol/L (98-107) Carbon Dioxide Level 26mmol/L (21-32) Anion Gap 9 (6-14) Blood Urea Nitrogen 11mg/dL (7-20) Creatinine 0.9mg/dL (0.6-1.0) Estimated GFR (Cockcroft-Gault) 73.0 Glucose Level 93mg/dL (70-99) Calcium Level 8.4mg/dL (8.5-10.1) Assessment and Plan Assessmemt and Plan Problems Medical Problems: (1) Pyelonephritis Status: Acute Problems: Comment Review of Relevant I have reviewed the following items rashaun (where applicable) has been applied. Labs Laboratory Tests Test 02/24/17 08:50 02/25/17 03:30 White Blood Count 10.1x10^3/uL (4.0-11.0) 8.2x10^3/uL (4.0-11.0) Red Blood Count 2.62x10^6/uL (3.50-5.40) 2.52x10^6/uL (3.50-5.40) Hemoglobin 8.2g/dL (12.0-15.5) 7.9g/dL (12.0-15.5) Hematocrit 23.8% (36.0-47.0) 23.5% (36.0-47.0) Mean Corpuscular Volume 91fL (79-100) 93fL (79-100) Mean Corpuscular Hemoglobin 32pg (25-35) 31pg (25-35) Mean Corpuscular Hemoglobin Concent 35g/dL (31-37) 34g/dL (31-37) Red Cell Distribution Width 15.4% (11.5-14.5) 15.3% (11.5-14.5) Platelet Count 343x10^3/uL (140-400) 363x10^3/uL (140-400) Neutrophils (%) (Auto) 69% (31-73) 58% (31-73) Lymphocytes (%) (Auto) 20% (24-48) 31% (24-48) Monocytes (%) (Auto) 9% (0-9) 7% (0-9) Eosinophils (%) (Auto) 2% (0-3) 4% (0-3) Basophils (%) (Auto) 1% (0-3) 1% (0-3) Neutrophils # (Auto) 6.9x10^3uL (1.8-7.7) 4.8x10^3uL (1.8-7.7) Lymphocytes # (Auto) 2.0x10^3/uL (1.0-4.8) 2.5x10^3/uL (1.0-4.8) Monocytes # (Auto) 0.9x10^3/uL (0.0-1.1) 0.6x10^3/uL (0.0-1.1) Eosinophils # (Auto) 0.2x10^3/uL (0.0-0.7) 0.3x10^3/uL (0.0-0.7) Basophils # (Auto) 0.1x10^3/uL (0.0-0.2) 0.1x10^3/uL (0.0-0.2) Sodium Level 140mmol/L (136-145) 142mmol/L (136-145) Potassium Level 3.5mmol/L (3.5-5.1) 3.8mmol/L (3.5-5.1) Chloride Level 105mmol/L (98-107) 107mmol/L (98-107) Carbon Dioxide Level 27mmol/L (21-32) 26mmol/L (21-32) Anion Gap 8 (6-14) 9 (6-14) Blood Urea Nitrogen 8mg/dL (7-20) 11mg/dL (7-20) Creatinine 1.0mg/dL (0.6-1.0) 0.9mg/dL (0.6-1.0) Estimated GFR (Cockcroft-Gault) 64.7 73.0 Glucose Level 102mg/dL (70-99) 93mg/dL (70-99) Calcium Level 8.1mg/dL (8.5-10.1) 8.4mg/dL (8.5-10.1) Laboratory Tests Test 02/25/17 03:30 White Blood Count 8.2x10^3/uL (4.0-11.0) Red Blood Count 2.52x10^6/uL (3.50-5.40) Hemoglobin 7.9g/dL (12.0-15.5) Hematocrit 23.5% (36.0-47.0) Mean Corpuscular Volume 93fL (79-100) Mean Corpuscular Hemoglobin 31pg (25-35) Mean Corpuscular Hemoglobin Concent 34g/dL (31-37) Red Cell Distribution Width 15.3% (11.5-14.5) Platelet Count 363x10^3/uL (140-400) Neutrophils (%) (Auto) 58% (31-73) Lymphocytes (%) (Auto) 31% (24-48) Monocytes (%) (Auto) 7% (0-9) Eosinophils (%) (Auto) 4% (0-3) Basophils (%) (Auto) 1% (0-3) Neutrophils # (Auto) 4.8x10^3uL (1.8-7.7) Lymphocytes # (Auto) 2.5x10^3/uL (1.0-4.8) Monocytes # (Auto) 0.6x10^3/uL (0.0-1.1) Eosinophils # (Auto) 0.3x10^3/uL (0.0-0.7) Basophils # (Auto) 0.1x10^3/uL (0.0-0.2) Sodium Level 142mmol/L (136-145) Potassium Level 3.8mmol/L (3.5-5.1) Chloride Level 107mmol/L (98-107) Carbon Dioxide Level 26mmol/L (21-32) Anion Gap 9 (6-14) Blood Urea Nitrogen 11mg/dL (7-20) Creatinine 0.9mg/dL (0.6-1.0) Estimated GFR (Cockcroft-Gault) 73.0 Glucose Level 93mg/dL (70-99) Calcium Level 8.4mg/dL (8.5-10.1) Microbiology 02/22/17 Blood Culture - Preliminary, Resulted NO GROWTH AFTER 2 DAYS 02/22/17 Urine Culture - Final, Complete 02/22/17 Urine Culture Result 1 (LISA) - Final, Complete 02/22/17 Antimicrobic Susceptibility - Final, Complete Medications Current Medications Sodium Chloride (Iv Sodium Chloride 0.9% 1000ml Bag) 1,000 ml @ 2,910 mls/hr Q21M IV Last administered on 02/22/17 19:43; Start 02/22/17 at 19:00; Stop at 20:00; Status DC Ondansetron HCl (Zofran) 4 mg 1X ONCE IV Last administered on 02/22/17 19:41 ; Start 02/22/17 at 19:00; Stop 02/22/17 at 19:01; Status DC Morphine Sulfate 4 mg 4 mg 1X ONCE IV Last administered on 02/22/17 19:42; Start 02/22/17 at 19:00; Stop 02/22/17 at 19:01; Status DC Ceftriaxone Sodium (Rocephin 1gm Ivpb For Omni) 50 ml @ 100 mls/hr 1X ONCE IV Last administered on 02/22/17 19:48; Start 02/22/17 at 20:00; Stop 02/22/17 at 20:29; Status DC Iohexol (Omnipaque 300 Mg/ml) 60 ml 1X ONCE IV Last administered on 02/22/17 20:18; Start 02/22/17 at 20:30; Stop 02/22/17 at 20:31; Status DC Info (Do NOT chart on this entry -- for MONITORING) 1 each PRN DAILY PRN MC SEE COMMENTS; Start 02/22/17 at 20:15; Stop 02/24/17 at 20:14; Status DC Acetaminophen (Tylenol) 1,000 mg 1X ONCE PO Last administered on 02/22/17 20: 43; Start 02/22/17 at 20:45; Stop 02/22/17 at 20:46; Status DC Potassium Chloride (Klor-Con) 40 meq 1X ONCE PO Last administered on 23:22; Start 02/22/17 at 21:45; Stop 02/22/17 at 21:46; Status DC Ondansetron HCl (Zofran) 4 mg PRN Q8HRS PRN IV NAUSEA/VOMITING Last administered on 02/23/17 11:51; Start 02/22/17 at 22:30; Stop 02/23/17 at 18:42 ; Status DC Morphine Sulfate 4 mg 4 mg PRN Q2HR PRN IV PAIN Last administered on 02/23/17 05:16; Start 02/22/17 at 22:30; Stop 02/23/17 at 22:29; Status DC Sodium Chloride (Iv Sodium Chloride 0.9% 1000ml Bag) 1,000 ml @ 125 mls/hr Q8H IV Last administered on 02/23/17 05:15; Start 02/22/17 at 22:30; Stop at 15:36; Status DC Acetaminophen 650 mg 650 mg PRN Q4HRS PRN PO FEVER; Start 02/22/17 at 22:30; Stop 02/23/17 at 09:47; Status DC Ceftriaxone Sodium 1 gm/ Sodium Chloride 50 ml @ 100 mls/hr Q24H IV Last administered on 02/24/17 10:30; Start 02/23/17 at 10:00 Sodium Chloride (Iv Sodium Chloride 0.9% 1000ml Bag) 1,000 ml @ 100 mls/hr Q10H IV Last administered on 02/24/17 21:26; Start 02/23/17 at 09:30 Acetaminophen (Tylenol) 325 mg PRN Q6HRS PRN PO MILD PAIN / TEMP Last administered on 02/24/17 08:28; Start 02/23/17 at 09:30 Acetaminophen/ Hydrocodone Bitart (Lortab 5/325) 1 tab PRN Q6HRS PRN PO MODERATE TO SEVERE PAIN Last administered on 02/25/17 08:53; Start 02/23/17 at 09:30 Hydralazine HCl (Apresoline) 10 mg PRN Q4HRS PRN IVP ELEVATED BP, SEE COMMENTS ; Start 02/23/17 at 09:30 Ondansetron HCl (Zofran) 4 mg PRN Q8HRS PRN IV NAUSEA/VOMITING; Start 02/23/17 at 09:30 Albuterol Sulfate (Ventolin Neb Soln) 2.5 mg PRN Q4HRS PRN NEB SHORTNESS OF BREATH Last administered on 02/24/17 11:38; Start 02/23/17 at 09:30 Pantoprazole Sodium (Protonix Vial) 40 mg DAILYAC IVP Last administered on 02/23 10:00; Start 02/23/17 at 10:00; Stop 02/23/17 at 18:44; Status DC Enoxaparin Sodium (Lovenox 40mg Syringe) 40 mg Q24H SQ Last administered on 08:40; Start 02/23/17 at 10:00 Nicotine (Nicoderm Cq 21mg) 1 patch PRN DAILY PRN TD SMOKING CESSATION Last administered on 02/23/17 10:40; Start 02/23/17 at 10:15 Pantoprazole Sodium (Protonix) 40 mg DAILYAC PO Last administered on 02/25/17 08:40; Start 02/24/17 at 07:30 Active Scripts Active Naproxen 500 Mg Tablet 1 Tab PO BID [place] 5-325 Tablet (Acetaminophen/Hydrocodone Bitart) 1 Each Tablet 1 Tab PO PRN Q6HRS PRN Vitals/I & O Vital Sign - Last 24 Hours 02/24/17 02/24/17 02/24/17 02/24/17 11:34 11:39 15:00 19:00 Temp 97.7 98.9 99.1 97.7 98.9 99.1 Pulse 88 94 Resp 16 14 20 B/P 112/54 110/70 107/62 Pulse Ox 94 94 96 O2 Delivery Room Air Room Air Room Air Room Air 02/24/17 02/24/17 02/24/17 02/25/17 20:36 21:45 23:00 03:00 Temp 98.3 97.7 98.3 97.7 Pulse 85 81 Resp 15 16 20 20 B/P 103/70 105/69 Pulse Ox 94 94 97 O2 Delivery Room Air Room Air Room Air 02/25/17 02/25/17 02/25/17 07:00 08:53 09:55 Temp 97.0 97.0 Pulse 88 Resp 22 B/P 120/60 Pulse Ox 98 97 97 O2 Delivery Room Air Room Air Room Air O2 Flow Rate 3.0 3.0 Intake and Output 02/24/17 02/24/17 02/25/17 15:00 23:00 07:00 Intake Total 480 ml 340 ml 300 ml Balance 480 ml 340 ml 300 ml WANG OSWALD MD Feb 25, 2017 11:30
[2017-02-25] MEDS ORDERED: CIPR250T PO (11:32)
[2017-02-25] MEDS ORDERED: IV NORMAL SALINE 1000ML BAG 1,000 ML IV SCH (12:15)
--- NOTE | 2017-02-25 13:43 | RAD ---
Abdominal ultrasound - limited to the kidneys Indication: Pyelonephritis. Comparison: CT abdomen pelvis 02/22/2017. Procedure: Transabdominal ultrasound images are obtained of the kidneys and bladder. Findings: Right kidney measures 14.5 cm in length. Left kidney measures 13.7 cm in length. The parenchymal echogenicity of both kidneys appears heterogeneous both kidneys demonstrate areas of mildly increased echogenicity. No renal obstruction or convincing stone is identified. The urinary bladder has unremarkable appearance. Impression: 1. Both kidneys demonstrate heterogeneous echogenicity and appears enlarged. While this finding is nonspecific, it would be compatible with provided history of pyelonephritis. 2. No evidence of perinephric fluid collection.
--- NOTE | 2017-03-05 20:10 | DS ---
DATE OF DISCHARGE: 02/25/2017 DISCHARGE DIAGNOSES: 1. Acute pyelonephritis, Escherichia coli sensitive to ciprofloxacin. 2. Abdominal pain due to above, resolved. 3. Hypokalemia, resolved. 4. THC and nicotine use. BRIEF HOSPITAL COURSE: A 31-year-old female patient presents to the hospital with acute abdominal pain. During hospitalization, she was diagnosed with E. coli pyelonephritis and she was placed on broad-spectrum antibiotics, IV Rocephin. Her symptoms improved with IV antibiotics and pain medications. Urine cultures positive for E coli, pansensitive to several antibiotics. She has been sent home in stable condition with ciprofloxacin. She has been recommended to follow up with primary care doctor after completion of antibiotics. DISCHARGE EXAMINATION: GENERAL: Alert, oriented x 3. HEART: S1, S2 present. LUNGS: Anterior chest clear. ABDOMEN: Soft, nontender, no organomegaly. EXTREMITIES: No edema. DISCHARGE DISPOSITION: Home. DISCHARGE CONDITION: Stable. FOLLOWUP: With primary care doctor after completion of antibiotic. Total time spent for discharge is 35 minutes for patient education, counseling, and coordination of care. WANG OSWALD MD DR: CURRY/elton JOB#: [id number] / [id number] VERONICA
== END 2017-02-25 17:14 | disposition home or self-care (01) | DRG 872 ==
LOC: ER 17:14 → 5 SOUTH 22:15
PROVIDERS: ADMIT Internal Medicine; ATTEND Internal Medicine
DX: A41.9 Sepsis, unspecified organism (principal); N10 Acute pyelonephritis; E66.9 Obesity, unspecified; E87.6 Hypokalemia; F12.90 Cannabis use, unspecified, uncomplicated; F17.210 Nicotine dependence, cigarettes, uncomplicated; Z68.38 Body mass index [BMI] 38.0-38.9, adult; Z83.3 Family history of diabetes mellitus; Z79.899 Other long term (current) drug therapy; N18.2 Chronic kidney disease, stage 2 (mild); B96.20 Unspecified Escherichia coli [E. coli] as the cause of diseases classified elsewhere
CPT/HCPCS: 36415; 71020; 74177; 76770; 80048; 80053; 81001; 81025; 83605; 83690; 85027; 87040; 87086; 87186; 87804; 94250; 94640; 94760; 96365; 96366; 96374; 96375; C9113; J0690; J0696; J1650; J2270; J2405; J7030; Q9967; 99285-25

== ENCOUNTER 2017-05-12 19:07 | Emergency (ER) | payer OTHER ==
[~2017-05-12] VITALS: Ht 167.6 cm; Wt 90.7 kg
[~2017-05-12 19:07] MED LIST changes: +CIPR250T PO; -TRAM-29 PO; +TRAM-48 PO
[2017-05-12] MEDS ORDERED: BENZONATATE 100 MG CAPSULE. PO ONE (20:45)
[2017-05-12] MEDS ORDERED: predniSONE 20 MG TABLET PO ONE (20:45)
[2017-05-12] MEDS ORDERED: PROMETH/CODEINE 6.25/10MG 5 ML SYRUP. PO ONE (20:45)
[2017-05-12] MEDS ORDERED: IPRATRPIUM/ALBUTEROL 0.5/2.5MG 3 ML NEBU. NEB ONE (20:45)
[2017-05-12] MEDS ORDERED: PRED50TA PO (21:25)
[2017-05-12] MEDS ORDERED: BENZ100C PO (21:25)
[2017-05-12] MEDS ORDERED: PROAIR RESPICL90 MCG IH (21:25)
--- NOTE | 2017-05-12 21:26 | PHYS DOC ---
Past Medical History Past Medical History: No Pertinent History Past Surgical History: Other Additional Past Surgical Histo: vaginal delivery 09/2016 Alcohol Use: Occasionally Drug Use: Marijuana Adult General Chief Complaint Chief Complaint: SORE THROAT HPI HPI Patient is a 31 year old female with history of smoking who presents today with a productive cough with yellow sputum and sore throat for 2 days. Patient denies any fever. Review of Systems Review of Systems Constitutional: See history of present illness Eyes: Denies change in visual acuity, redness, or eye pain [] HENT: sore throat [] Respiratory: cough Cardiovascular: No additional information not addressed in HPI [] GI: Denies abdominal pain, nausea, vomiting, bloody stools or diarrhea [] : Denies dysuria or hematuria [] Musculoskeletal: Denies back pain or joint pain [] Integument: Denies rash or skin lesions [] Neurologic: Denies headache, focal weakness or sensory changes [] Endocrine: Denies polyuria or polydipsia [] Current Medications Current Medications Current Medications Medications (Trade) Dose Ordered Sig/Triny Start Time Stop Time Status Last Admin Dose Admin Albuterol/ Ipratropium (Duoneb) 3 ml 1X ONCE 05/12/17 20:45 05/12/17 20:46 DC 05/12/17 20:35 3 ML Benzonatate (Tessalon Perle) 100 mg 1X ONCE 05/12/17 20:45 05/12/17 20:46 DC 05/12/17 20:31 100 MG Prednisone (Prednisone) 60 mg 1X ONCE 05/12/17 20:45 05/12/17 20:46 DC 05/12/17 20:31 60 MG Promethazine HCl/ Codeine (Phenergan With Codeine) 5 ml 1X ONCE 05/12/17 20:45 05/12/17 20:46 DC 05/12/17 20:31 5 ML Allergies Allergies Allergies Coded Allergies Type Severity Reaction Last Updated Verified No Known Drug Allergies 07/09/14 No Physical Exam Physical Exam Constitutional: Well developed, well nourished, no acute distress, non-toxic appearance. [] HENT: Normocephalic, atraumatic, bilateral external ears normal, oropharynx moist, no oral exudates, nose normal. [] Eyes: PERRLA, EOMI, conjunctiva normal, no discharge. [] Neck: Normal range of motion, no tenderness, supple, no stridor. [] Cardiovascular:Heart rate regular rhythm, no murmur [] Lungs & Thorax: Bilateral breath sounds clear to auscultation [] Abdomen: Bowel sounds normal, soft, no tenderness, no masses, no pulsatile masses. [] Skin: Warm, dry, no erythema, no rash. [] Back: No tenderness, no CVA tenderness. [] Extremities: No tenderness, no cyanosis, no clubbing, ROM intact, no edema. [] Neurologic: Alert and oriented X 3, normal motor function, normal sensory function, no focal deficits noted. [] Psychologic: Affect normal, judgement normal, mood normal. [] Current Patient Data Vital Signs Vital Signs Date Time Temp Pulse Resp B/P (MAP) Pulse Ox O2 Delivery O2 Flow Rate FiO2 05/12/17 20:36 100 Room Air 05/12/17 19:50 98.1 68 18 98.1 EKG EKG [] Radiology/Procedures Radiology/Procedures [] Course & Med Decision Making Course & Med Decision Making Pertinent Labs and Imaging studies reviewed. (See chart for details) Patient is in the ED with symptoms consistent of acute bronchitis. She was given a DuoNeb treatment in the ED prednisone and Tessalon Perles. She'll be discharged with albuterol inhaler prednisone Tessalon Perles. Provided instructions to follow-up with her own PCP 2 weeks. Encouraged to consider smoking cessation. Negative rapid strep test. Leobardo Disclaimer Leobardo Disclaimer This electronic medical record was generated, in whole or in part, using a voice recognition dictation system. Departure Departure Impression: Primary Impression: Acute bronchitis Additional Impressions: Smoking addiction Viral pharyngitis Disposition: 01 HOME, SELF-CARE Condition: STABLE Referrals: NO PCP (PCP) Follow-up with your doctor in 1-2 weeks Patient Instructions: Acute Bronchitis, Smoking Cessation, Viral Pharyngitis Additional Instructions: You were seen with symptoms consistent of acute bronchitis. Consider smoking cessation. Take the prescribed medicines as ordered. Your strep test is negative. Follow-up with your doctor in 1-2 weeks. Scripts Benzonatate (TESSALON PERLE) 100 Mg Capsule 1 CAP PO TID, #30 CAP Prov: PETERAANGELA CASHIER SUPERVISOR 05/12/17 Albuterol Sulfate (Proair Respiclick) 90 Mcg Aer.pow.ba 1 PUFF IH PRN Q6HRS Y for SHORTNESS OF BREATH, #1 INHALER Prov: ANGELA HOLDEN APRN 05/12/17 Prednisone (PREDNISONE) 50 Mg Tablet 1 TAB PO DAILY, #5 TAB Prov: ANGELA HOLDEN APRN 05/12/17 Problem Qualifiers Primary Impression: Acute bronchitis Bronchitis organism: unspecified organism Qualified Codes: J20.9 - Acute bronchitis, unspecified ANGELA HOLDEN APRN May 12, 2017 21:26
[2017-05-12 21:30] VITALS: BP 128/81
[2017-05-13 07:37] LABS: NEGATIVE OBC STREP NEG; POSITIVE OBC STREP POS
== END 2017-05-12 21:36 | disposition home or self-care (01) ==
LOC: ER 19:07
DX: J20.9 Acute bronchitis, unspecified (principal); J02.8 Acute pharyngitis due to other specified organisms; F12.10 Cannabis abuse, uncomplicated; F17.200 Nicotine dependence, unspecified, uncomplicated
CPT/HCPCS: 87070; 87880; 94640; 99284; J7512; J7620

== ENCOUNTER 2017-06-23 09:27 | Emergency (ER) | payer OTHER ==
[~2017-06-23] VITALS: Ht 167.6 cm; Wt 99.8 kg
[~2017-06-23 09:27] MED LIST changes: +BENZ100C PO; +PRED50TA PO; +PROAIR RESPICL90 MCG IH
[2017-06-23] MEDS ORDERED: AMOXICILLIN/K CLAV 875/125MG TABLET. PO ONE (10:15)
[2017-06-23] MEDS ORDERED: IBUPROFEN 800 MG TABLET. PO ONE (10:15)
--- NOTE | 2017-06-23 10:32 | RAD ---
Bilateral knee x-rays Indication: Dog bite behind and above both knees. Rule out foreign body Technique: AP and lateral views of the bilateral knees Comparison: None Findings: Right knee: No acute fracture or dislocation. No knee joint effusion. No radiopaque density in the soft tissue suggest foreign body. Left knee: No acute fracture or dislocation. No knee joint effusion. No radiopaque density in the soft tissue suggest foreign body. Impression: No radiopaque foreign bodies.
[2017-06-23 11:15] VITALS: BP 132/86
[2017-06-23] MEDS ORDERED: AMOX1TAB61 PO (11:28)
--- NOTE | 2017-06-23 11:28 | PHYS DOC ---
Past Medical History Past Medical History: No Pertinent History Past Surgical History: Other Additional Past Surgical Histo: vaginal delivery 09/2016 Alcohol Use: Occasionally Drug Use: None Adult General Chief Complaint Chief Complaint: ANIMAL BITE HPI HPI 32-year-old female status post dog bite from her sister's dog last night. Patient states she was forced to be near her sister who she normally doesn't speak to. She was outside her sister's fence when the sister's dog a pit bull mix attacked her from behind biting both of her thighs and behind her knees. This happened last night. Patient was able to get away without other injuries. She states her tetanus is up-to-date within 5 years. She gave the wounds but did not get any medical care last night. Today she has some bruising and areas are more sore. No redness or drainage. Fevers chills sweats or shaking chills Review of Systems Review of Systems Constitutional: Denies fever or chills [] Eyes: Denies change in visual acuity, redness, or eye pain [] HENT: Denies nasal congestion or sore throat [] Respiratory: Denies cough or shortness of breath [] Cardiovascular: No additional information not addressed in HPI [] GI: Denies abdominal pain, nausea, vomiting, bloody stools or diarrhea [] : Denies dysuria or hematuria [] Musculoskeletal: Denies back pain or joint pain [] Integument: Denies rash or skin lesions [] Neurologic: Denies headache, focal weakness or sensory changes [] Endocrine: Denies polyuria or polydipsia [] Current Medications Current Medications Current Medications Medications (Trade) Dose Ordered Sig/[facility] Start Time Stop Time Status Last Admin Dose Admin Amoxicillin/ Clavulanate Potassium (Augmentin 875/ 125mg) 1 tab 1X ONCE 06/23/17 10:15 06/23/17 10:16 DC 06/23/17 11:04 1 TAB Ibuprofen (Motrin) 800 mg 1X ONCE 06/23/17 10:15 06/23/17 10:16 DC 06/23/17 11:04 800 MG Allergies Allergies Allergies Coded Allergies Type Severity Reaction Last Updated Verified No Known Drug Allergies 07/09/14 No Physical Exam Physical Exam 32-year-old female with multiple areas of bruising the posterior aspect of bilateral thighs with multiple superficial puncture wounds. No palpable foreign body. No erythema warmth fluctuance or crepitus. Soft compartmentsNVI distal Constitutional: Well developed, well nourished, no acute distress, non-toxic appearance. [] HENT: Normocephalic, atraumatic, bilateral external ears normal, oropharynx moist, no oral exudates, nose normal. [] Eyes: PERRLA, EOMI, conjunctiva normal, no discharge. [] Neck: Normal range of motion, no tenderness, supple, no stridor. [] Cardiovascular:Heart rate regular rhythm, no murmur [] Lungs & Thorax: Bilateral breath sounds clear to auscultation [] Abdomen: Bowel sounds normal, soft, no tenderness, no masses, no pulsatile masses. [] Skin: Warm, dry, no erythema, no rash. [] Back: No tenderness, no CVA tenderness. [] Extremities: No tenderness, no cyanosis, no clubbing, ROM intact, no edema. [] Neurologic: Alert and oriented X 3, normal motor function, normal sensory function, no focal deficits noted. [] Psychologic: Affect normal, judgement normal, mood normal. [] Current Patient Data Vital Signs Vital Signs Date Time Temp Pulse Resp B/P (MAP) Pulse Ox O2 Delivery O2 Flow Rate FiO2 06/23/17 09:50 98.0 106 20 97 Room Air 98.0 EKG EKG [] Radiology/Procedures Radiology/Procedures X-ray bilateral knees soft tissue to rule out foreign body negative for foreign body interpreted by me report reviewed [] Course & Med Decision Making Course & Med Decision Making Pertinent Labs and Imaging studies reviewed. (See chart for details) Patient status post dog bite. Irrigated last PM. Tetanus up-to-date. No palpable foreign body. X-ray with no foreign body able to be radiographically identified. Augmentin given. Patient states started. Healthy but she does not know anything about the shot status of the animal. It is her sister's pet. Animal control will be notified regarding follow-up and recommendation regarding rabies prophylaxis if indicated. Patient were to verify her tetanus status with her primary care doctor. Augmentin prescribed. She'll follow up with PCP in 2 days for wound check and return immediately for signs of infection. Patient aware that with this as with any puncture is possible to have a retained foreign body without it being visible on x-ray or palpable on exam. Dragon Disclaimer Dragon Disclaimer This electronic medical record was generated, in whole or in part, using a voice recognition dictation system. Departure Departure Disposition: 01 HOME, SELF-CARE Referrals: NO PCP (PCP) Patient Instructions: Animal Bite, Puncture Wound Additional Instructions: You've been bitten by her sister's dog. Your multiple puncture wounds show no signs of infection at this time. Finish Augmentin as prescribed twice a day for 5 days. Take ibuprofen 800 mg every 6 hours if needed for pain and Tylenol as well if necessary. Follow-up with your doctor in 2 days for a wound check. Follow-up with animal control for recommendation regarding rabies treatment if necessary if the dog's health deteriorates during observation. Return for signs of infection. Scripts Amoxicillin/Potassium Clav (AUGMENTIN 875-125 TABLET) 1 Each Tablet 1 TAB PO BID, #10 TAB Prov: CUAUHTEMOC HERNANDEZ MD 06/23/17 CUAUHTEMOC HERNANDEZ MD Jun 23, 2017 11:28
== END 2017-06-23 11:30 | disposition home or self-care (01) ==
LOC: ER 09:27
DX: S70.12XA Contusion of left thigh, initial encounter (principal); S70.11XA Contusion of right thigh, initial encounter; W54.0XXA Bitten by dog, initial encounter; Y93.89 Activity, other specified; Y99.8 Other external cause status; Y92.89 Other specified places as the place of occurrence of the external cause
CPT/HCPCS: 73560; 99284

== ENCOUNTER 2020-01-19 21:12 | Emergency (ER) | payer SELFPAY ==
[~2020-01-19] VITALS: Ht 167.6 cm; Wt 90.9 kg
[~2020-01-19 21:12] MED LIST changes: +AMOX1TAB61 PO; +HYDR-3164 PO; -HYDR-971 PO; +NAPR-514 PO; -NAPR500T3 PO
[2020-01-19 21:36] VITALS: BP 153/82
--- NOTE | 2020-01-19 21:37 | PHYS DOC ---
Past Medical History Past Medical History: No Pertinent History Past Surgical History: Other Additional Past Surgical Histo: vaginal delivery 09/2016 Smoking Status: Current Every Day Smoker Alcohol Use: Occasionally Drug Use: None Adult General Chief Complaint Chief Complaint: LACERATION/AVULSION HPI HPI Patient is a 34 year old female who presents to the ED today with left upper lip laceration and chin contusion, patient reports being tripped by one of her children while running and falling. Patient denies any loss of consciousness. Denies being on any anticoagulants. Denies any neck pain. Review of Systems Review of Systems Constitutional: Denies fever or chills [] Eyes: Denies change in visual acuity, redness, or eye pain [] HENT: Denies nasal congestion or sore throat [] Respiratory: Denies cough or shortness of breath [] Cardiovascular: No additional information not addressed in HPI [] GI: Denies abdominal pain, nausea, vomiting, bloody stools or diarrhea [] : Denies dysuria or hematuria [] Musculoskeletal: Denies back pain or joint pain [] Integument: Reports upper lip laceration, chin contusion Neurologic: Denies headache, focal weakness or sensory changes [] All other systems were reviewed and found to be within normal limits, except as documented in this note. Current Medications Current Medications Current Medications Medications (Trade) Dose Ordered Sig/Triny Start Time Stop Time Status Last Admin Dose Admin Lidocaine HCl (Buffered Lidocaine 1%) 3 ml 1X ONCE 01/19/20 21:45 01/19/20 21:46 DC Allergies Allergies Allergies Coded Allergies Type Severity Reaction Last Updated Verified No Known Drug Allergies 07/09/14 No Physical Exam Physical Exam Constitutional: Well developed, well nourished, no acute distress, non-toxic appearance. [] HENT: Normocephalic, atraumatic, bilateral external ears normal, oropharynx moist, no oral exudates, nose normal. [] Eyes: PERRLA, EOMI, conjunctiva normal, no discharge. [] Neck: Normal range of motion, no tenderness, supple, no stridor. [] Cardiovascular:Heart rate regular rhythm, no murmur [] Lungs & Thorax: Bilateral breath sounds clear to auscultation [] Abdomen: Bowel sounds normal, soft, no tenderness, no masses, no pulsatile masses. [] Skin: Warm, dry, chin with a contusion, left upper mustache region with a laceration cutting through, laceration is 1 cm long. No loose teeth noted. Back: No tenderness, no CVA tenderness. [] Extremities: No tenderness, no cyanosis, no clubbing, ROM intact, no edema. [] Neurologic: Alert and oriented X 3, normal motor function, normal sensory function, no focal deficits noted. [] Psychologic: Affect normal, judgement normal, mood normal. [] Current Patient Data Vital Signs Vital Signs Date Time Temp Pulse Resp B/P (MAP) Pulse Ox O2 Delivery O2 Flow Rate FiO2 01/19/20 21:36 98.1 109 16 153/82 (105) 99 Room Air 98.1 EKG EKG [] Radiology/Procedures Radiology/Procedures Laceration/Wound Repair Wound Location: Upper lip Wound's Depth, Shape: Horizontal Wound Length (cm): Exterior laceration 1 cm, anterior laceration 1.5 cm Wound Explored: clean Irrigated w/ Saline (ccs): 20 Betadine Prep?: Y Anesthesia: 1% of buffered lidocaine Volume Anesthetic (ccs): Approximately 3 cc Wound Repaired With: Vicryl 4.0 Suture Size/Type: Exterior laceration was closed with 3 interrupted sutures, anterior laceration was closed with 2 interrupted sutures Progress wounds were left HOUSEKEEPING STAFF Course & Med Decision Making Course & Med Decision Making Pertinent Labs and Imaging studies reviewed. (See chart for details) This is a 34-year-old female patient presenting to the ED today with left upper lip laceration and chin contusion after falling. Laceration was repaired by me as noted in procedures. Wound care instructions and return precautions provided. Tetanus up-to-date Dragon Disclaimer Dragon Disclaimer This electronic medical record was generated, in whole or in part, using a voice recognition dictation system. Departure Departure Impression: Primary Impression: Lip laceration Additional Impressions: Chin contusion Fall Disposition: 01 HOME, SELF-CARE Condition: STABLE Referrals: NO PCP (PCP) follow up with your doctor as needed Patient Instructions: Contusion, [id number], Laceration Care, Adult, [id number] Additional Instructions: You have a laceration on your left upper lip that was closed with dissolvable stitches. You can shower and wash your face. Do not scrub the regions. You can take [id number] Tylenol/Motrin as needed for pain. Please follow-up with your own doctor in 1 to 2 weeks as needed. Monitor the area for any signs of infection including but not limited to increased redness, warmth, yellow drainage from the areas and return to the ED if they occur. Problem Qualifiers Primary Impression: Lip laceration Encounter type: initial encounter Qualified Codes: S01.511A - Laceration without foreign body of lip, initial encounter Additional Impressions: Chin contusion Encounter type: initial encounter Qualified Codes: S00.83XA - Contusion of other part of head, initial encounter Fall Encounter type: initial encounter Qualified Codes: W19.XXXA - Unspecified fall, initial encounter ANGELA HOLDEN APRN Jan 19, 2020 21:37
[2020-01-19] MEDS ORDERED: LIDOCAINE WITH 8.4% SOD BICARB 3 ML DISP.SYRIN. INJ ONE (21:45)
== END 2020-01-19 22:31 | disposition home or self-care (01) ==
LOC: ER 21:12
DX: S01.511A Laceration without foreign body of lip, initial encounter (principal); F17.200 Nicotine dependence, unspecified, uncomplicated; Z98.890 Other specified postprocedural states; W01.0XXA Fall on same level from slipping, tripping and stumbling without subsequent striking against object, initial encounter; Y93.02 Activity, running; Y92.89 Other specified places as the place of occurrence of the external cause; Y99.8 Other external cause status
CPT/HCPCS: 12011; 99282; J3490

== ENCOUNTER 2020-04-24 17:23 | Observation (INO) | payer SELFPAY ==
[2020-04-24 18:37] LABS: BILIRUBIN,URINE NEGATIVE (NEG); CLARITY,URINE CLEAR; COLOR,URINE YELLOW; NITRITE,URINE NEGATIVE (NEG); PROTEIN,URINE NEGATIVE (NEG-TRACE)
[2020-04-24 18:43] LABS: AMNIO PT NEGATIVE
[2020-04-24 18:44] LABS: BARBITURATES NEG (NEG); BENZODIAZEPINES NEG (NEG); CANNABINOIDS NEG (NEG); COCAINE NEG (NEG); METHADONE NEG (NEG); OPIATES NEG (NEG); PHENCYCLIDINE NEG (NEG)
[2020-04-24 18:45] LABS: AMPHETAMINE/METHAMPHETAMINE NEG (NEG)
[2020-04-24 19:01] LABS: SQUAMOUS EPITHELIAL CELL,UR MANY /LPF
[2020-04-24 19:02] LABS: BACTERIA,URINE MODERATE /HPF (0-FEW)
[2020-04-24 19:03] LABS: RBC,URINE 0 /HPF (0-2)
--- NOTE | 2020-04-24 21:32 | RAD ---
CLINICAL HISTORY: Gravid patient, no care. COMPARISON: None available. TECHNIQUE: Limited transabdominal ultrasound of the uterus was performed. FINDINGS: There is a single live fetus in cephalic position. Cardiac activity is visualized and documented at a rate of 165 beats per minute. The placenta is anterior without placenta previa. The amniotic fluid is normal for gestational stage. the amniotic fluid index is 13. Current measurements are: BPD - 7.6 cm = 30 weeks 3 days HC - 28.73 cm = 31 weeks 4 days AC - 26.9 cm =31 weeks 0 day FL - 5.81 cm = 30 weeks 3 days The gestational size based on todays measurements is 30 weeks 6 days. The estimated weight is 1646+/- 244 gm. The estimated date of delivery is 06/27/2020. IMPRESSION: Single live intrauterine gestation in cephalic presentation with estimated gestational age of 30 weeks, 6 days and an estimated date of delivery 06/27/2020. Electronically signed by: Jean Linares MD (04/24/2020 9:29 PM) GEORGINA
== END 2020-04-24 21:15 | disposition home or self-care (01) ==
LOC: 3 SO LND 17:23
PROVIDERS: ADMIT Obstetrics & Gynecology; ATTEND Obstetrics & Gynecology
DX: O26.893 Other specified pregnancy related conditions, third trimester (principal); Z3A.30 30 weeks gestation of pregnancy
CPT/HCPCS: 36415; 76815; 80307; 81001; 84112; 86592; 86703; 86762; 86850; 86900; 86901; 87086; 87340; G0378; G0379

== ENCOUNTER 2020-05-19 21:02 | Observation (INO) | payer OTHER ==
[2020-05-19 21:29] LABS: BILIRUBIN,URINE NEGATIVE (NEG); CLARITY,URINE CLEAR; COLOR,URINE YELLOW; NITRITE,URINE NEGATIVE (NEG); PH,URINE 6.5 (<5.0-8.0); PROTEIN,URINE NEGATIVE (NEG-TRACE)
[2020-05-19] MEDS ORDERED: IV RINGERS,LACTATED 1000ML 1,000 ML IV SCH (21:30)
[2020-05-19 21:36] LABS: BACTERIA,URINE MODERATE /HPF (0-FEW); SQUAMOUS EPITHELIAL CELL,UR FEW /LPF; WBC,URINE >40 /HPF (0-4)
[2020-05-19 21:38] LABS: AMPHETAMINE/METHAMPHETAMINE NEG (NEG); BARBITURATES NEG (NEG); BENZODIAZEPINES NEG (NEG); CANNABINOIDS POS (NEG); COCAINE NEG (NEG); METHADONE NEG (NEG); OPIATES NEG (NEG); PHENCYCLIDINE NEG (NEG)
== END 2020-05-19 22:34 | disposition home or self-care (01) ==
LOC: 3 SO LND 21:02
PROVIDERS: ADMIT Obstetrics & Gynecology; ATTEND Obstetrics & Gynecology
DX: O26.853 Spotting complicating pregnancy, third trimester (principal); Z3A.28 28 weeks gestation of pregnancy
CPT/HCPCS: 80307; 81001; 87086; G0378; G0379

== ENCOUNTER 2020-06-06 14:57 | Observation (INO) | payer OTHER ==
[2020-06-06] MEDS ORDERED: IV RINGERS,LACTATED 1000ML 1,000 ML IV PRN (15:00)
[2020-06-06 15:19] LABS: BILIRUBIN,URINE NEGATIVE (NEG); CLARITY,URINE CLEAR; COLOR,URINE YELLOW; NITRITE,URINE NEGATIVE (NEG); PROTEIN,URINE NEGATIVE (NEG-TRACE)
[2020-06-06 15:37] LABS: SQUAMOUS EPITHELIAL CELL,UR MOD /LPF
[2020-06-06 15:43] LABS: BASO # 0.1 x10^3/uL (0.0-0.2); BASO % 1 % (0-3); EOS # 0.4 x10^3/uL (0.0-0.7); EOS % 3 % (0-3); HEMATOCRIT 33.1 % (36.0-47.0); HEMOGLOBIN 10.8 g/dL (12.0-15.5); LYMPH # 2.2 x10^3/uL (1.0-4.8); LYMPH % 17 % (24-48); MEAN CORPUSCULAR HEMOGLOBIN 28 pg (25-35); MEAN CORPUSCULAR HGB CONC 33 g/dL (31-37); MEAN CORPUSCULAR VOLUME 85 fL (79-100); MONO # 0.9 x10^3/uL (0.0-1.1); MONO % 7 % (0-9); NEUT # 9.4 x10^3/uL (1.8-7.7); NEUT % 72 % (31-73); PLATELET COUNT 392 x10^3/uL (140-400); RED BLOOD COUNT 3.91 x10^6/uL (3.50-5.40); RED CELL DISTRIBUTION WIDTH 16.2 % (11.5-14.5)
[2020-06-06 15:44] LABS: BACTERIA,URINE MODERATE /HPF (0-FEW)
[2020-06-06 15:45] LABS: RBC,URINE 0 /HPF (0-2)
[2020-06-06 15:59] LABS: CALCIUM 9.9 mg/dL (8.5-10.1); CREATININE 0.5 mg/dL (0.6-1.0); GFR 141.2; POTASSIUM 4.2 mmol/L (3.5-5.1)
[2020-06-06 16:05] LABS: ALBUMIN 2.5 g/dL (3.4-5.0); ALBUMIN/GLOBULIN RATIO 0.7 (1.0-1.7); TOTAL BILIRUBIN 0.3 mg/dL (0.2-1.0); TOTAL PROTEIN 6.2 g/dL (6.4-8.2)
== END 2020-06-06 16:29 | disposition home or self-care (01) ==
LOC: 3 SO LND 14:57
PROVIDERS: ADMIT Obstetrics & Gynecology; ATTEND Obstetrics & Gynecology
DX: O13.3 Gestational [pregnancy-induced] hypertension without significant proteinuria, third trimester (principal); Z3A.37 37 weeks gestation of pregnancy; Z79.899 Other long term (current) drug therapy
CPT/HCPCS: 36415; 80053; 81001; 82570; 84156; 85025; 87086; G0378; G0379

== ENCOUNTER 2020-06-13 14:10 | Observation (INO) | payer OTHER ==
[2020-06-13] MEDS ORDERED: IV RINGERS,LACTATED 1000ML 1,000 ML IV SCH (14:22)
[2020-06-13 14:48] LABS: BILIRUBIN,URINE NEGATIVE (NEG); CLARITY,URINE CLEAR; COLOR,URINE YELLOW; NITRITE,URINE NEGATIVE (NEG); PROTEIN,URINE NEGATIVE (NEG-TRACE)
[2020-06-13 14:57] LABS: SQUAMOUS EPITHELIAL CELL,UR MANY /LPF
[2020-06-13 14:58] LABS: RBC,URINE OCC /HPF (0-2); WBC,URINE 20-40 /HPF (0-4)
[2020-06-13 14:59] LABS: BACTERIA,URINE MODERATE /HPF (0-FEW)
[2020-06-13 15:06] LABS: BASO # 0.1 x10^3/uL (0.0-0.2); BASO % 1 % (0-3); EOS # 0.4 x10^3/uL (0.0-0.7); EOS % 3 % (0-3); HEMATOCRIT 31.7 % (36.0-47.0); HEMOGLOBIN 10.4 g/dL (12.0-15.5); LYMPH # 2.3 x10^3/uL (1.0-4.8); LYMPH % 17 % (24-48); MEAN CORPUSCULAR HEMOGLOBIN 28 pg (25-35); MEAN CORPUSCULAR HGB CONC 33 g/dL (31-37); MEAN CORPUSCULAR VOLUME 84 fL (79-100); MONO % 8 % (0-9); NEUT # 9.5 x10^3/uL (1.8-7.7); NEUT % 71 % (31-73); PLATELET COUNT 380 x10^3/uL (140-400); RED BLOOD COUNT 3.78 x10^6/uL (3.50-5.40); RED CELL DISTRIBUTION WIDTH 15.8 % (11.5-14.5); WHITE BLOOD COUNT 13.4 x10^3/uL (4.0-11.0)
[2020-06-13 15:10] LABS: CALCIUM 9.5 mg/dL (8.5-10.1); CREATININE 0.5 mg/dL (0.6-1.0); GFR 141.2; POTASSIUM 4.2 mmol/L (3.5-5.1)
[2020-06-13 15:17] LABS: ALBUMIN 2.4 g/dL (3.4-5.0); ALBUMIN/GLOBULIN RATIO 0.7 (1.0-1.7); TOTAL BILIRUBIN 0.3 mg/dL (0.2-1.0); TOTAL PROTEIN 5.8 g/dL (6.4-8.2)
--- NOTE | 2020-06-13 15:53 | RAD ---
INDICATION: Reason: elevated BP and decreased movement / Spl. Instructions: / History: COMPARISON: April 24, 2020 TECHNIQUE: Focused ultrasound was performed of the uterus in order to obtain a biophysical profile. Please note that this is not a complete anatomic survey. FINDINGS: Breathin Gross Body Movement: 2 Tone: 2 Amniotic Fluid Volume 2. Heartbeat 140. Placenta is anterior. Cephalic presentation. Maternal cervix 41 mm. Amniotic fluid index 10.3 IMPRESSION: biophysical profile score is 8 out of 8. Electronically signed by: Reggie Beard MD (06/13/2020 3:50 PM) [id number]
== END 2020-06-13 16:24 | disposition home or self-care (01) ==
LOC: 3 SO LND 14:10
PROVIDERS: ADMIT Obstetrics & Gynecology; ATTEND Obstetrics & Gynecology
DX: O36.8930 Maternal care for other specified fetal problems, third trimester, not applicable or unspecified (principal); O26.893 Other specified pregnancy related conditions, third trimester; R03.0 Elevated blood-pressure reading, without diagnosis of hypertension; Z3A.38 38 weeks gestation of pregnancy; Z79.899 Other long term (current) drug therapy
CPT/HCPCS: 36415; 76819; 80053; 81001; 82570; 84156; 85025; 87086; G0378; G0379

== ENCOUNTER → 2020-06-15 | Outpatient (CLI) | payer OTHER ==
[~2020-06-15] MED LIST changes: +IBUP-1027 PO
== END | disposition home or self-care (01) ==
LOC: LAB 14:29
PROVIDERS: ATTEND Obstetrics & Gynecology
DX: Z01.818 Encounter for other preprocedural examination (principal); Z11.59 Encounter for screening for other viral diseases; O75.82 Onset (spontaneous) of labor after 37 completed weeks of gestation but before 39 completed weeks gestation, with delivery by (planned) cesarean section
CPT/HCPCS: U0003-CS

== ENCOUNTER 2020-06-16 11:11 | Inpatient (IN) | payer OTHER ==
[~2020-06-16] VITALS: Ht 167.6 cm; Wt 103.1 kg
[~2020-06-16 11:11] MED LIST changes: -IBUP-1027 PO
[2020-06-16] MEDS ORDERED: fentaNYL PF VIAL 100 MCG/2 ML VIAL IVP PRN ×2 (11:30)
[2020-06-16] MEDS ORDERED: ONDANSETRON PF 4 MG/2 ML VIAL. IVP PRN (11:30)
[2020-06-16] MEDS ORDERED: CITRIC ACID/SODIUM CITRATE 30 ML SOLUTION. PO PRN (11:30)
[2020-06-16] MEDS ORDERED: OXYTOCIN 30 UNIT/500 ML PREMIX 500 ML IV PRN ×3 (11:30→18:30)
[2020-06-16] MEDS ORDERED: IBUPROFEN 400 MG TABLET. PO PRN (11:30)
[2020-06-16] MEDS ORDERED: LIDOCAINE 1% PF 30 ML VIAL. INJ PRN (11:30)
[2020-06-16] MEDS ORDERED: 0.9 % SODIUM CHLORIDE 10 ML DISP.SYRIN. IV PRN ×2 (11:30→18:30)
[2020-06-16] MEDS ORDERED: TERBUTALINE 1 MG/ML VIAL. SQ PRN (11:30)
[2020-06-16] MEDS ORDERED: ACETAMINOPHEN 325 MG TABLET. PO PRN ×2 (11:30→18:30)
[2020-06-16] MEDS: IV RINGERS,LACTATED 1000ML 1,000 ML IV SCH ×2 (11:52→15:01)
[2020-06-16 11:55] VITALS: BP 145/95
[2020-06-16 12:06] LABS: BASO # 0.1 x10^3/uL (0.0-0.2); BASO % 1 % (0-3); EOS # 0.6 x10^3/uL (0.0-0.7); EOS % 4 % (0-3); HEMATOCRIT 30.3 % (36.0-47.0); HEMOGLOBIN 10.1 g/dL (12.0-15.5); LYMPH % 15 % (24-48); MEAN CORPUSCULAR HEMOGLOBIN 28 pg (25-35); MEAN CORPUSCULAR HGB CONC 34 g/dL (31-37); MEAN CORPUSCULAR VOLUME 83 fL (79-100); MONO # 0.7 x10^3/uL (0.0-1.1); MONO % 5 % (0-9); NEUT # 9.7 x10^3/uL (1.8-7.7); NEUT % 75 % (31-73); PLATELET COUNT 352 x10^3/uL (140-400); RED BLOOD COUNT 3.66 x10^6/uL (3.50-5.40); RED CELL DISTRIBUTION WIDTH 16.1 % (11.5-14.5); WHITE BLOOD COUNT 12.9 x10^3/uL (4.0-11.0)
[2020-06-16 12:14] LABS: CALCIUM 9.4 mg/dL (8.5-10.1); CREATININE 0.5 mg/dL (0.6-1.0); GFR 140.4; POTASSIUM 3.6 mmol/L (3.5-5.1)
[2020-06-16 12:19] LABS: ALBUMIN 2.2 g/dL (3.4-5.0); ALBUMIN/GLOBULIN RATIO 0.6 (1.0-1.7); TOTAL BILIRUBIN 0.3 mg/dL (0.2-1.0)
[2020-06-16 12:55] LABS: BILIRUBIN,URINE NEGATIVE (NEG); CLARITY,URINE CLEAR; COLOR,URINE YELLOW; NITRITE,URINE NEGATIVE (NEG); PH,URINE 6.5 (<5.0-8.0); PROTEIN,URINE 30 mg/dL (NEG-TRACE)
[2020-06-16 12:58] LABS: CREATININE,RANDOM URINE 66.6 mg/dL (Not Establ.)
[2020-06-16 13:12] LABS: SQUAMOUS EPITHELIAL CELL,UR MOD /LPF
[2020-06-16 13:13] LABS: BACTERIA,URINE 0 /HPF (0-FEW); WBC,URINE 20-40 /HPF (0-4)
[2020-06-16] MEDS ORDERED: ROPIVacaine 0.2% PF 10 ML VIAL. ONE ×2 (15:26→16:00)
[2020-06-16] MEDS ORDERED: L&D EPIDURAL SYRINGE 50 ML ONE (15:26)
[2020-06-16] MEDS ORDERED: L&D EPIDURAL 50 ML SYRINGE. ONE (16:00)
[2020-06-16] MEDS ORDERED: IV RINGERS,LACTATED 1000ML 1,000 ML IV SCH (16:36)
[2020-06-16] MEDS ORDERED: ePHEDrine PF IN SALINE 50 MG/10 ML SYRINGE. IV PRN (16:45)
[2020-06-16] MEDS ORDERED: NALOXONE 0.4 MG/ML VIAL. IV PRN (16:45)
[2020-06-16] MEDS ORDERED: IV RINGERS,LACTATED 500ML 500 ML IV PRN (16:45)
[2020-06-16] MEDS ORDERED: fentaNYL PF VIAL 100 MCG/2 ML VIAL EPID PRN (16:45)
[2020-06-16] MEDS ORDERED: BUPIVACAINE MPF 0.25% 30 ML VIAL. EPID PRN (16:45)
[2020-06-16] MEDS ORDERED: PHENYLEPHRINE in 0.9% NACL PF 1 MG/10 ML SYRINGE. IV PRN (16:45)
[2020-06-16] MEDS ORDERED: ATROPINE 0.5 MG/5 ML DISP.SYRINGE. IV PRN (16:45)
[2020-06-16] MEDS ORDERED: ROPIVacaine 0.2% PF 10 ML VIAL. EPID PRN (16:45)
[2020-06-16] MEDS ORDERED: L&D EPIDURAL SYRINGE 50 ML EPID PRN (16:45)
--- NOTE | 2020-06-16 17:46 | PDOC1 ---
OB - History Hx of Present Care: Limited Care Ultrasounds: Normal mid trimester US Obstetrical Complications: None Medical Complications: None Past Family/Social History * Past Medical, Surgical, Family and Obstetric Histories reviewed from chart. Blood Type: A+ Rubella: Not Immune RPR/VDRL: Negative GBS Status: Negative HBsAG: Negative OB - Chief Complaint & HPI Date of Admission: Date of Admission: Jun 16, 2020 at 11:11 Chief Complaint/History : 5 Para: 4 EGA: 38 Reason for admission: active labor, rupture of membranes Admission Nurse Assessment Rev: Yes OB - Admission Exam Physical Exam Vitals: VS - Last 72 Hours, by Label Date Time Temp Pulse Resp B/P (MAP) Pulse Ox O2 Delivery O2 Flow Rate FiO2 06/16/20 11:55 98.2 126 22 145/95 (112) Room Air 98.2 HEENT: Normal Heart: Regular Rate Lungs: Clear, Equal Abdomen: Gravid, Non tender, Soft Extremities: Edema Reflexes: Normal Cervical Dilatation: 2cm Effacement: 75% Station: -3 Membranes: Ruptured Amniotic Fluid: Clear Heart Rate: Normal Accelerations: Accelerations Present Short Term Variability: Present Contractions on Admission: >10 Minutes Apart Intensity: Mild Text A: 38 wks IUP SROM Active labor P: Admit labor management. ANITA AMBROSE Jr, MD Jun 16, 2020 17:46
--- NOTE | 2020-06-16 18:24 | PDOC ---
VAGINAL DELIVERY DATE DATE: 06/16/20 TIME: 18:23 : 5 Para: 5 EGA: 38 VAGINAL DELIVERY: VTX VACCUM ASSISTED: No PLACENTA: Spontaneous 8/9 SEX: Female WEIGHT Weight [2930 gm ] Nuchal Cord: No Amniotic Fluid: Clear PAIN: Epidural EPISIOTOMY: No EXTENSION: No EBL 300 ml COMPLICATIONS none CONDITION pt. stable Signs of Intrauterine Infectio: None Shoulder Dystocia: No ANITA AMBROSE Jr, MD Jun 16, 2020 18:24
[2020-06-16] MEDS ORDERED: ZOLPIDEM 5 MG TABLET. PO PRN (18:30)
[2020-06-16] MEDS ORDERED: CALCIUM CARBONATE 500 MG TAB.CHEW PO PRN (18:30)
[2020-06-16] MEDS ORDERED: diphenhydrAMINE HCL 25 MG CAPSULE PO PRN (18:30)
[2020-06-16] MEDS ORDERED: PANTOPRAZOLE IV PUSH 40 MG VIAL. IVP ONE (18:30)
[2020-06-16] MEDS ORDERED: MAGNESIUM HYDROXIDE 2,400 MG/30 ML ORAL.SUSP. PO PRN (18:30)
[2020-06-16] MEDS ORDERED: BENZOCAINE 20% TOPICAL AEROSOL SPRAY 57GM CAN. TP PRN (18:30)
[2020-06-16] MEDS ORDERED: PHENYLEPH/MINERAL OIL/PETROLAT RECTAL OINTMENT TUBE. RC PRN (18:30)
[2020-06-16] MEDS ORDERED: MAG HYDROX/ALUMINUM HYD/SIMETH 30 ML ORAL.SUSP PO PRN (18:30)
[2020-06-16] MEDS ORDERED: HYDROCORTISONE 1% TOPICAL OINTMENT 30GM TUBE. TP PRN (18:30)
[2020-06-16] MEDS ORDERED: MMR per PROTOCOL. MC PRN (18:30)
[2020-06-16] MEDS ORDERED: SIMETHICONE 80 MG TAB.CHEW PO PRN (18:30)
[2020-06-16] MEDS ORDERED: TDaP (Adacel) per PROTOCOL. MC PRN (18:30)
[2020-06-16] MEDS: ALBUTEROL SULFATE 2.5 MG/3 ML NEBU. NEB PRN (18:42)
[2020-06-16] MEDS: IBUPROFEN 400 MG TABLET. PO PRN (19:58)
[2020-06-16 22:16] VITALS: BP 122/82
[2020-06-17 01:18] VITALS: BP 110/63
[2020-06-17 08:37] LABS: BASO # 0.1 x10^3/uL (0.0-0.2); BASO % 1 % (0-3); EOS # 0.5 x10^3/uL (0.0-0.7); EOS % 3 % (0-3); HEMATOCRIT 28.8 % (36.0-47.0); HEMOGLOBIN 9.3 g/dL (12.0-15.5); LYMPH # 2.9 x10^3/uL (1.0-4.8); LYMPH % 15 % (24-48); MEAN CORPUSCULAR HEMOGLOBIN 27 pg (25-35); MEAN CORPUSCULAR HGB CONC 33 g/dL (31-37); MEAN CORPUSCULAR VOLUME 84 fL (79-100); MONO # 1.1 x10^3/uL (0.0-1.1); MONO % 6 % (0-9); NEUT # 14.3 x10^3/uL (1.8-7.7); NEUT % 75 % (31-73); PLATELET COUNT 309 x10^3/uL (140-400); RED BLOOD COUNT 3.43 x10^6/uL (3.50-5.40)
[2020-06-17 08:45] VITALS: BP 119/81
[2020-06-17] MEDS: NICOTINE 14MG PATCH. TD SCH ×2 (09:00)
[2020-06-17] MEDS: MULTIVITAMIN with MINERAL TABLET. PO SCH (09:42)
[2020-06-17] MEDS: DOCUSATE SODIUM 100 MG CAPSULE. PO PRN (09:42)
[2020-06-17] MEDS: FERROUS SULFATE 325 MG TABLET. PO SCH ×2 (09:42→17:00)
[2020-06-17] MEDS: IBUPROFEN 400 MG TABLET. PO PRN (09:42)
[2020-06-17 11:04] LABS: % BANDS 5 % (0-9); % BASOS 2 % (0-3); % EOS 2 % (0-5); % LYMPHS 19 % (24-48); % METAS 1 % (0-0); % MONOS 4 % (0-10); % SEGS 67 % (35-66); ANISOCYTOSIS PRESENT; PLT ESTIMATE ADEQUATE (ADEQUATE)
[2020-06-17 15:30] VITALS: BP 121/78
--- NOTE | 2020-06-17 16:49 | PDOC ---
OB Progress Note Date of Service 06/17/20 Time of Evaluation 1645 Notes Pt. feeling well. No complaints. Lab Laboratory Tests Test 06/16/20 11:21 06/16/20 11:51 06/16/20 12:07 06/17/20 07:15 Urine Collection Type Unknown Urine Color Yellow Urine Clarity Clear Urine pH 6.5 (<5.0-8.0) Urine Specific [place] 1.015 (1.000-1.030) Urine Protein 30 mg/dL (NEG-TRACE) Urine Glucose (UA) Negative mg/dL (NEG) Urine Ketones (Stick) Negative mg/dL (NEG) Urine Blood Trace (NEG) Urine Nitrite Negative (NEG) Urine Bilirubin Negative (NEG) Urine Urobilinogen Dipstick 1.0 mg/dL (0.2 mg/dL) Urine Leukocyte Esterase Moderate (NEG) Urine RBC 6-10 /HPF (0-2) Urine WBC 20-40 /HPF (0-4) Urine Squamous Epithelial Cells Mod /LPF Urine Bacteria 0 /HPF (0-FEW) Urine Mucus Slight /LPF Urine Random Creatinine 66.6 mg/dL (Not Establ.) Urine Random Total Protein 46.6 mg/dL (Not Establ.) Urine Protein/Creatinine Ratio 700 mg/g (0-200) White Blood Count 12.9 x10^3/uL (4.0-11.0) 19.0 x10^3/uL (4.0-11.0) Red Blood Count 3.66 x10^6/uL (3.50-5.40) 3.43 x10^6/uL (3.50-5.40) Hemoglobin 10.1 g/dL (12.0-15.5) 9.3 g/dL (12.0-15.5) Hematocrit 30.3 % (36.0-47.0) 28.8 % (36.0-47.0) Mean Corpuscular Volume 83 fL (79-100) 84 fL (79-100) Mean Corpuscular Hemoglobin 28 pg (25-35) 27 pg (25-35) Mean Corpuscular Hemoglobin Concent 34 g/dL (31-37) 33 g/dL (31-37) Red Cell Distribution Width 16.1 % (11.5-14.5) 16.0 % (11.5-14.5) Platelet Count 352 x10^3/uL (140-400) 309 x10^3/uL (140-400) Neutrophils (%) (Auto) 75 % (31-73) 75 % (31-73) Lymphocytes (%) (Auto) 15 % (24-48) 15 % (24-48) Monocytes (%) (Auto) 5 % (0-9) 6 % (0-9) Eosinophils (%) (Auto) 4 % (0-3) 3 % (0-3) Basophils (%) (Auto) 1 % (0-3) 1 % (0-3) Neutrophils # (Auto) 9.7 x10^3/uL (1.8-7.7) 14.3 x10^3/uL (1.8-7.7) Lymphocytes # (Auto) 2.0 x10^3/uL (1.0-4.8) 2.9 x10^3/uL (1.0-4.8) Monocytes # (Auto) 0.7 x10^3/uL (0.0-1.1) 1.1 x10^3/uL (0.0-1.1) Eosinophils # (Auto) 0.6 x10^3/uL (0.0-0.7) 0.5 x10^3/uL (0.0-0.7) Basophils # (Auto) 0.1 x10^3/uL (0.0-0.2) 0.1 x10^3/uL (0.0-0.2) Sodium Level 139 mmol/L (136-145) Potassium Level 3.6 mmol/L (3.5-5.1) Chloride Level 106 mmol/L (98-107) Carbon Dioxide Level 22 mmol/L (21-32) Anion Gap 11 (6-14) Blood Urea Nitrogen 7 mg/dL (7-20) Creatinine 0.5 mg/dL (0.6-1.0) Estimated GFR (Cockcroft-Gault) 140.4 BUN/Creatinine Ratio 14 (6-20) Glucose Level 112 mg/dL (70-99) Calcium Level 9.4 mg/dL (8.5-10.1) Total Bilirubin 0.3 mg/dL (0.2-1.0) Aspartate Amino Transf (AST/SGOT) 12 U/L (15-37) Alanine Aminotransferase (ALT/SGPT) 10 U/L (14-59) Alkaline Phosphatase 124 U/L (46-116) Total Protein 6.0 g/dL (6.4-8.2) Albumin 2.2 g/dL (3.4-5.0) Albumin/Globulin Ratio 0.6 (1.0-1.7) Treponema pallidum Antibody Nonreactive (Nonreactive) SARS-CoV-2 Antigen (Rapid) Negative (NEGATIVE) Segmented Neutrophils % 67 % (35-66) Band Neutrophils % 5 % (0-9) Lymphocytes % 19 % (24-48) Monocytes % 4 % (0-10) Eosinophils % 2 % (0-5) Basophils % 2 % (0-3) Metamyelocytes % 1 % (0-0) Platelet Estimate Adequate (ADEQUATE) Anisocytosis Present Laboratory Tests Test 06/17/20 07:15 White Blood Count 19.0 x10^3/uL (4.0-11.0) Red Blood Count 3.43 x10^6/uL (3.50-5.40) Hemoglobin 9.3 g/dL (12.0-15.5) Hematocrit 28.8 % (36.0-47.0) Mean Corpuscular Volume 84 fL (79-100) Mean Corpuscular Hemoglobin 27 pg (25-35) Mean Corpuscular Hemoglobin Concent 33 g/dL (31-37) Red Cell Distribution Width 16.0 % (11.5-14.5) Platelet Count 309 x10^3/uL (140-400) Neutrophils (%) (Auto) 75 % (31-73) Lymphocytes (%) (Auto) 15 % (24-48) Monocytes (%) (Auto) 6 % (0-9) Eosinophils (%) (Auto) 3 % (0-3) Basophils (%) (Auto) 1 % (0-3) Neutrophils # (Auto) 14.3 x10^3/uL (1.8-7.7) Lymphocytes # (Auto) 2.9 x10^3/uL (1.0-4.8) Monocytes # (Auto) 1.1 x10^3/uL (0.0-1.1) Eosinophils # (Auto) 0.5 x10^3/uL (0.0-0.7) Basophils # (Auto) 0.1 x10^3/uL (0.0-0.2) Segmented Neutrophils % 67 % (35-66) Band Neutrophils % 5 % (0-9) Lymphocytes % 19 % (24-48) Monocytes % 4 % (0-10) Eosinophils % 2 % (0-5) Basophils % 2 % (0-3) Metamyelocytes % 1 % (0-0) Platelet Estimate Adequate (ADEQUATE) Anisocytosis Present Medications Current Medications Sodium Chloride (Normal Saline Flush) 3 ml QSHIFT PRN IV AFTER MEDS AND BLOOD DRAWS; Start 06/16/20 at 11:30; Stop 06/16/20 at 21:00; Status DC Ringer's Solution 1,000 ml @ 125 mls/hr Q8H IV Last administered on 06/16/20at 15:01; Start 06/16/20 at 11:30; Stop 06/16/20 at 21:00; Status DC Fentanyl Citrate (Fentanyl 2ml Vial) 50 mcg PRN Q30MIN PRN IVP Mild to moderate pain; Start 06/16/20 at 11:30; Stop 06/16/20 at 21:00; Status DC Fentanyl Citrate (Fentanyl 2ml Vial) 100 mcg PRN Q30MIN PRN IVP Severe pain; Start 06/16/20 at 11:30; Stop 06/16/20 at 21:00; Status DC Acetaminophen (Tylenol) 650 mg PRN Q6HRS PRN PO MILD PAIN / TEMP > 100.3'F; Start 06/16/20 at 11:30; Stop 06/16/20 at 21:00; Status DC Ondansetron HCl (Zofran) 4 mg PRN Q4HRS PRN IVP NAUSEA/VOMITING; Start 06/16/20 at 11:30; Stop 06/16/20 at 21:00; Status DC Citric Acid/ Sodium Citrate (Bicitra) 30 ml 1X PRN PRN PO DYSPEPSIA; Start 06/16/20 at 11:30; Stop 06/17/20 at 11:29; Status DC Terbutaline Sulfate (Brethine) 0.25 mg 1X PRN PRN SQ SEE COMMENTS; Start 06/16/20 at 11:30; Stop 06/16/20 at 21:00; Status DC Lidocaine HCl (Xylocaine 1% Pf 30ml Vial) 30 ml 1X PRN PRN INJ SEE COMMENTS; Start 06/16/20 at 11:30; Stop 06/16/20 at 21:00; Status DC Oxytocin/Sodium Chloride 500 ml @ 0 mls/hr CONT PRN IV SEE I/O RECORD Last administered on 06/16/20at 13:21; Start 06/16/20 at 11:30; Stop 06/16/20 at 21:00; Status DC Oxytocin/Sodium Chloride 500 ml @ 0 mls/hr CONT PRN PRN IV Post delivery bleeding; Start 06/16/20 at 11:30; Stop 06/16/20 at 21:00; Status DC Ibuprofen (Motrin) 800 mg PRN Q6HRS PRN PO PAIN; Start 06/16/20 at 11:30; Stop 06/16/20 at 21:00; Status DC Albuterol Sulfate (Ventolin Neb Soln) 2.5 mg PRN Q4HRS PRN NEB SHORTNESS OF BREATH Last administered on 06/16/20at 18:42; Start 06/16/20 at 13:00 Ropivacaine (Naropin 0.2%) 10 ml STK-MED ONCE .ROUTE ; Start 06/16/20 at 15:26; Stop 06/16/20 at 15:27; Status DC Fentanyl Citrate 50 ml @ As Directed STK-MED ONCE .ROUTE ; Start 06/16/20 at 15:26; Stop 06/16/20 at 15:27; Status DC Ringer's Solution 1,000 ml @ 1,000 mls/hr Q1H IV Last administered on 06/16/20at 17:15; Start 06/16/20 at 16:36; Stop 06/16/20 at 17:35; Status DC Ringer's Solution 500 ml @ 500 mls/hr 1X PRN PRN IV HYPOTENSION; Start 06/16/20 at 16:45; Stop 06/17/20 at 16:44; Status DC Ephedrine Sulfate (ePHEDrine PF IN SALINE SYRINGE) 10 mg PRN Q2MIN PRN IV IF SBP<90; Start 06/16/20 at 16:45; Stop 06/16/20 at 21:00; Status DC Phenylephrine HCl (PHENYLEPHRINE in 0.9% NACL PF) 0.05 mg PRN Q2MIN PRN IV SBP less than 90; Start 06/16/20 at 16:45; Stop 06/16/20 at 21:00; Status DC Atropine Sulfate (ATROPINE 0.5mg SYRINGE) 0.4 mg PRN Q2MIN PRN IV FOR SYMPTOMATIC BRADYCARDIA; Start 06/16/20 at 16:45 Naloxone HCl (Narcan) 0.04 mg PRN Q1MIN PRN IV SEE COMMENTS; Start 06/16/20 at 16:45 Fentanyl Citrate (Fentanyl 2ml Vial) 100 mcg PRN 1X PRN EPID FOR ANESTHESIA; Start 06/16/20 at 16:45; Stop 06/16/20 at 21:00; Status DC Bupivacaine HCl (Sensorcaine Mpf 0.25%) 10 ml PRN 1X PRN EPID FOR ANESTHESIA; Start 06/16/20 at 16:45; Stop 06/16/20 at 21:00; Status DC Fentanyl Citrate 50 ml @ 14 mls/hr CONT PRN EPID PAIN; Start 06/16/20 at 16:45; Stop 06/16/20 at 21:00; Status DC Ropivacaine (Naropin 0.2%) 20 ml 1X PRN PRN EPID PER ANESTHESIA; Start 06/16/20 at 16:45; Stop 06/16/20 at 21:00; Status DC Sodium Chloride (Normal Saline Flush) 10 ml QSHIFT PRN IV AFTER MEDS AND BLOOD DRAWS; Start 06/16/20 at 18:30 Oxytocin/Sodium Chloride 500 ml @ 62.5 mls/hr CONT PRN IV SEE I/O RECORD; Start 06/16/20 at 18:30; Stop 06/17/20 at 02:29; Status DC Acetaminophen (Tylenol) 650 mg PRN Q6HRS PRN PO MILD PAIN / TEMP > 100.3'F; Start 06/16/20 at 18:30 Ibuprofen (Motrin) 800 mg PRN Q8HRS PRN PO INFLAMMATION/PAIN PREVENTION Last administered on 06/17/20at 09:42; Start 06/16/20 at 18:30 Docusate Sodium (Colace) 100 mg PRN BID PRN PO HARD STOOL Last administered on 06/17/20at 09:42; Start 06/16/20 at 18:30 Magnesium Hydroxide (Milk Of Magnesia) 2,400 mg PRN DAILY PRN PO CONSTIPATION; Start 06/16/20 at 18:30 Al Hydroxide/Mg Hydroxide (Mylanta Plus Xs) 30 ml PRN Q4HRS PRN PO HEARTBURN / GAS; Start 06/16/20 at 18:30 Simethicone (Gas-X) 80 mg PRN AFTMEALHC PRN PO GAS / BLOATING; Start 06/16/20 at 18:30 Diphenhydramine HCl (Benadryl) 25 mg PRN Q6HRS PRN PO ITCHING; Start 06/16/20 at 18:30 Benzocaine (Americaine) 1 spray PRN QID PRN TP TOPICAL PAIN Last administered on 06/16/20at 19:58; Start 06/16/20 at 18:30 Phenyleph/Shark Oil/Min Oil/Petrol (Preparation H) 1 miesha PRN QID PRN RC RECTAL PAIN; Start 06/16/20 at 18:30 Hydrocortisone (Cortaid) 1 miesha PRN QID PRN TP PERINEAL PAIN; Start 06/16/20 at 18:30 Ferrous Sulfate (Feosol) 325 mg BIDWMEALS PO Last administered on 06/17/20at 09:42; Start 06/17/20 at 08:00 Zolpidem Tartrate (Ambien) 5 mg PRN QHS PRN PO INSOMNIA, MAY REPEAT X1; Start 06/16/20 at 18:30 Info (Do NOT chart on this placeholder) 1 ea 1X PRN PRN MC SEE COMMENTS; Start 06/16/20 at 18:30 Info (Do NOT chart on this placeholder) 1 ea 1X PRN PRN MC SEE COMMENTS; Start 06/16/20 at 18:30 Oxycodone/ Acetaminophen (Percocet 5/325) 2 tab PRN Q4HRS PRN PO MODERATE PAIN, SEVERE PAIN; Start 06/16/20 at 18:30 Multivitamins (Thera M Plus) 1 tab DAILY PO Last administered on 06/17/20at 09:42; Start 06/17/20 at 09:00 Calcium Carbonate/ Glycine (Tums) 500 mg PRN Q4HRS PRN PO INDIGESTION; Start 06/16/20 at 18:30 Pantoprazole Sodium (PROTONIX VIAL for IV PUSH) 40 mg 1X ONCE IVP Last administered on 06/16/20at 19:59; Start 06/16/20 at 18:30; Stop 06/16/20 at 18:47; Status DC Nicotine (Nicoderm Cq 14mg) 1 patch DAILY TD ; Start 06/17/20 at 00:00 Active Scripts Active Augmentin 875-125 Tablet (Amoxicillin/Potassium Clav) 1 Each Tablet 1 Tab PO BID Tessalon Perle (Benzonatate) 100 Mg Capsule 1 Cap PO TID Proair Respiclick (Albuterol Sulfate) 90 Mcg Aer.pow.ba 1 Puff IH PRN Q6HRS PRN Prednisone 50 Mg Tablet 1 Tab PO DAILY Ciprofloxacin Hcl 250 Mg Tablet 500 Mg PO BID Naproxen 500 Mg Tablet 1 Tab PO BID [place] 5-325 Tablet (Acetaminophen/Hydrocodone Bitart) 1 Each Tablet 1 Tab PO PRN Q6HRS PRN Exam Abd: soft, non tender, fundus firm Assessment PPD#1 s/p Plan of Care: Continue current Tx, Mgmt ANITA AMBROSE Jr, MD Jun 17, 2020 16:49
[2020-06-17 17:51] VITALS: BP 118/79
[2020-06-17 20:20] VITALS: BP 123/79
[2020-06-17] MEDS: oxyCODONE/APAP 5/325 1 TAB TABLET PO PRN (20:33)
[2020-06-17 22:20] VITALS: BP 123/79
[2020-06-18 06:00] VITALS: BP 132/94
[2020-06-18] MEDS: NICOTINE 14MG PATCH. TD SCH (08:17)
[2020-06-18] MEDS: FERROUS SULFATE 325 MG TABLET. PO SCH (08:17)
[2020-06-18] MEDS: DOCUSATE SODIUM 100 MG CAPSULE. PO PRN (08:17)
[2020-06-18] MEDS: MULTIVITAMIN with MINERAL TABLET. PO SCH (08:17)
[2020-06-18] MEDS: oxyCODONE/APAP 5/325 1 TAB TABLET PO PRN (08:17)
[2020-06-18] MEDS: IBUPROFEN 400 MG TABLET. PO PRN (08:18)
[2020-06-18] MEDS: ALBUTEROL SULFATE 2.5 MG/3 ML NEBU. NEB PRN (08:27)
--- NOTE | 2020-06-18 09:20 | PDOC3 ---
OB DISCHARGE SUMMARY DATE OF ADMISSION: 06/16/20 DATE OF DISCHARGE: 06/18/20 REASON FOR ADMISSION: Onset of labor INTRAPARTUM PROCEDURES: Spontanous Vag Deliv DISCHARGE DIAGNOSIS: Term Delivered DISCHARGE INFORMATION: Activity (ad sean), Diet (regular), Instructions (pelvic rest x 6 wks) HOSPITAL COURSE Term gestation delivered vaginally without complications. ANITA AMBROSE Jr, MD Jun 18, 2020 09:20
[2020-06-18] MEDS ORDERED: IBUP-1027 PO (09:21)
--- NOTE | 2020-06-18 09:22 | DISCH ---
DISCHARGE INSTRUCTIONS Condition on Discharge Condition on Discharge: Stable Activity After Discharge Activity Instructions for Disc: Activity as tolerated Lifting Instructions after Dis: No heavy lifting, Add. restrict see below Driving Instructions after Dis: Do not drive today, Other, see below Diet after Discharge Diet after Discharge: Regular Liquid Texture: Thin Liquid Contacting the DRDavid after DC Call your doctor for: Concerns you may have Follow-Up Follow up with: Dr. Bellamy in 6 wks Treatment/Equipment after DC Adaptive Equipment Issued: None ANITA BELLAMY Jr, MD Jun 18, 2020 09:22
[2020-06-18] MEDS ORDERED: MEASLES, MUMPS & RUBELLA VACC 0.5 ML VIAL. VAX SQ ONE (10:00)
[2020-06-18] MEDS ORDERED: DIPH,PERTUSS(ACELL),TET VAC/PF 0.5 ML SYRINGE. VAX IM ONE (10:15)
[2020-06-18 12:10] VITALS: BP 134/98
--- NOTE | 2020-06-18 12:35 | NUR ---
Pt. discharged per order with . Pt. ambulated down to ED exit. No questions expressed at this time. Discharge instructions given prior to departure.
--- NOTE | 2020-06-18 12:41 | NUR ---
SS following up with referral regarding mother placed other child up for adoption. Mother stated she has children in home. SS reviewed mother chart and discussed with infant RN. No history of substance use noted. Per , RN, Meconium sent in infant. SS met with mother to assess circumstances surrounding the referral. Mother reported that she has three children in her custody living in the home. Mother reported she had one child that was a voluntary adoption due to lack of resources at the time of . She reported that it was an open adoption through agency. Mother reported that she has all resources needed for . She reported that she is enrolled in WIC and infant has been added to Medicaid. Mother reported that all of her other children have Medicaid. Mother reported that she has good family support and transportation. Mother reported that will be seen at [facility] in [facility]. Mother reported that she has car seat, diapers, wipes, and clothing. Per RN, mother has been appropriate with infant. This referral did not meet criteria for DCF hotline report at this time. RN notified.
== END 2020-06-18 12:35 | disposition home or self-care (01) | DRG 807 ==
LOC: 3 SO LND 11:11 → 3 NORTH 21:56
PROVIDERS: ADMIT Obstetrics & Gynecology; ATTEND Obstetrics & Gynecology
PROC: 10E0XZZ Delivery of Products of Conception, External Approach (ICD-10-PCS; principal; 2020-06-16)
PROC: 3E0234Z Introduction of Serum, Toxoid and Vaccine into Muscle, Percutaneous Approach (ICD-10-PCS; 2020-06-16)
PROC: 3E0R3BZ Introduction of Anesthetic Agent into Spinal Canal, Percutaneous Approach (ICD-10-PCS; 2020-06-16)
PROC: 00HU33Z Insertion of Infusion Device into Spinal Canal, Percutaneous Approach (ICD-10-PCS; 2020-06-16)
DX: O42.92 Full-term premature rupture of membranes, unspecified as to length of time between rupture and onset of labor (principal); Z37.0 Single live birth; Z3A.38 38 weeks gestation of pregnancy; Z20.828 Contact with and (suspected) exposure to other viral communicable diseases; Z23 Encounter for immunization
CPT/HCPCS: 36415; 80053; 81001; 82570; 84156; 85007; 85025; 86592; 86850; 86900; 86901; 87077; 87086; 87186; 87426; 90471; 90707; 90715; 94640; 96365; 96366; C9113; J2590; J2795; J3010; J7120; 99285-25; G0378; J7613

== ENCOUNTER 2021-04-09 16:16 | Emergency (ER) | payer SELFPAY ==
[~2021-04-09] VITALS: Ht 167.6 cm; Wt 97.7 kg
[~2021-04-09 16:16] MED LIST changes: +IBUP-1027 PO
[2021-04-09 17:43] VITALS: BP 145/89
[2021-04-09] MEDS ORDERED: LIDOCAINE 2%/EPI 1:100,000 20 ML VIAL. INJ ONE (18:00)
[2021-04-09] MEDS ORDERED: CEPH500T PO (19:44)
[2021-04-09] MEDS ORDERED: DIPH,PERTUSS(ACELL),TET VAC/PF 0.5 ML SYRINGE. VAX IM ONE (19:45)
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
== END 2021-04-09 20:07 | disposition home or self-care (01) ==
LOC: ER 16:16
DX: S01.111A Laceration without foreign body of right eyelid and periocular area, initial encounter (principal); F17.200 Nicotine dependence, unspecified, uncomplicated; Y04.0XXA Assault by unarmed brawl or fight, initial encounter; Y93.89 Activity, other specified; Y92.89 Other specified places as the place of occurrence of the external cause; Y99.8 Other external cause status
CPT/HCPCS: 12013; 90471; 90715; 99283; J3490